=== PATIENT | female | born 1970 | race Caucasian/White ===

== ENCOUNTER 2023-08-05 08:40 | Outpatient (AMB) | payer OTHER, SELFPAY ==
--- NOTE | 2023-08-05 08:42 | MHC.OFFVIS ---
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 Previous patient of Dr. Rivera. The patient describes her knee pains as sharp and severe in nature, 07/28. Her right knee pain is worse than her left is at this point. She has had multiple injections in the past. The most recent injection gave her minimal relief. She has also done physical therapy for 12 weeks over the last 6 months which aggravated her pain. She has tried Tylenol and anti-inflammatory medicines which gave her minimal relief. The patient has difficulty walking even short distances because of her pain. At this point her right knee pain is interfering with her activities of daily living and her ability to sleep well through the night. The patient has been going to a fitness center and eating well so she has lost 65 pounds. 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 Physical Exam Vital Signs: BMI result Body Mass Index 42.3 Const Other: Well-nourished well-developed very friendly female awake alert and oriented x3 in no acute distress Extrem Other: Bilateral lower extremity examination shows good capillary refill, no skin lesions noted, normal sensation light touch Bilateral knee examination shows minimal effusions, palpable crepitus with range of motion, pain with range of motion, range of motion from -3 degrees to 115 degrees, no instability Results Reviewed Results Reviewed: X-rays of the patient's bilateral knee show severe joint space narrowing with grade 4 [id number] arthritis, subchondral sclerosis, osteophyte formation, no acute bony abnormalities Assessment & Plan Assessment & Plan (1) Arthritis of left knee: Code(s): M17.12 - Unilateral primary osteoarthritis, left knee (2) Arthritis of right knee: Code(s): M17.11 - Unilateral primary osteoarthritis, right knee Plan Ms. Weiss presents with bilateral knee pains, right greater than left, due to end-stage degenerative joint disease. I had a lengthy discussion with the patient regarding the treatment options. At this point she has failed continued non operative treatments. The risks and benefits of right total knee replacement surgery were discussed at length with the patient. The patient wishes to proceed with surgery. The patient will contact my office to pick a surgery date. I will see her back 1 week prior to the surgery to answer any final questions that she might have. She will follow-up as instructed. Feel free to call me at any time should questions regarding her orthopedic management arise. I spent 22 minutes in reviewing the patient's records and imaging studies, seeing the patient and documenting in the medical record. Coding Level of Care Code Est Pt Level 2 (12128) Diagnoses Arthritis of left knee M17.12 Arthritis of right knee M17.11
[2023-08-05 08:45] VITALS: BMI 42.3
== END 2023-08-05 09:07 | disposition home or self-care (01) ==
PROVIDERS: PCP Internal Medicine; Visit Provider Orthopaedic Surgery
DX: M17.0 Bilateral primary osteoarthritis of knee (principal)
CPT/HCPCS: 99212

== ENCOUNTER → 2023-08-05 08:40 | Outpatient (BNVA) | payer OTHER, SELFPAY | PROVIDERS: PCP Internal Medicine; Visit Provider Orthopaedic Surgery ==

== ENCOUNTER → 2023-10-07 08:33 | Outpatient (BNVA) | payer OTHER, SELFPAY | PROVIDERS: PCP Internal Medicine; Visit Provider Orthopaedic Surgery ==

== ENCOUNTER 2023-11-04 08:09 | Outpatient (AMB) | payer OTHER, SELFPAY ==
[2023-11-04 08:14] VITALS: BMI 42.3
--- NOTE | 2023-11-04 08:14 | MHC.OFFVIS ---
Intake Vital Signs 11/04/23 08:14 Height 5 ft 7 in Weight 270 lb BMI 42.3 Intake Visit Reasons: Right knee pain Intake Note: Estefany is a 52 year old female who presents with complaints of bilateral knee pains. The patient describes her knee pains as sharp and severe in nature, 10/10. Her right knee pain is worse than her left is at this point. She has had multiple injections in the past. The most recent injection gave her minimal relief. She has also done physical therapy for 12 weeks over the last 6 months which aggravated her pain. She has tried Tylenol and anti-inflammatory medicines which gave her minimal relief. The patient has difficulty walking even short distances because of her pain. At this point her right knee pain is interfering with her activities of daily living and her ability to sleep well through the night. The patient has been going to a fitness center and eating well so she has lost 65 pounds. Allergies No Known Allergies Allergy (Verified 11/04/23 08:23) [facility] Medical History Osteoarthritis Hypothyroidism Hx of pulmonary embolus during Surgical History Hx of section Social History Household Members: Family Housing: House Are you a primary home health care physician to a significant other at home: No Do you presently have visiting nurse or other home services: No Alcohol intake: current Comment: aware of trip hazard Patient Tobacco Use Status: Never used Tobacco Use of substances other than those prescribed or required for medical reasons: No Current occupational status: employed 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 Physical Exam Vital Signs: BMI result Body Mass Index 42.3 Const Other: Well-nourished well-developed very friendly female awake alert and oriented x3 in no acute distress Lungs - clear to auscultation bilaterally with symmetric expansion Cardiovascular exam - regular rate and rhythm Abdominal exam - soft nontender nondistended Extrem Other: Right knee examination shows a minimal effusion, palpable crepitus with range of motion, pain with range of motion, range of motion from -3 degrees to 115 degrees, no instability Results Reviewed Results Reviewed: X-rays of the patient's bilateral knees taken today show severe joint space narrowing with grade 4 icuj-ej-flhy arthritis, subchondral sclerosis, osteophyte formation, no acute bony abnormalities Assessment & Plan Assessment & Plan (1) Right knee pain: Code(s): M25.561 - Pain in right knee Plan Ms. Weiss presents with progressively worsening bilateral knee pains, right greater than left, due to end-stage degenerative joint disease. I had a lengthy discussion with the patient regarding her treatment options. The risks and benefits of right total knee replacement surgery were discussed at length with the patient. The patient wishes to proceed with surgery. donor services team leader will be consulted following her surgery for home physical therapy and nursing. The patient will follow-up as instructed. Feel free to call me at time should questions regarding her orthopedic management arise. I spent 22 minutes in reviewing the patient's records and imaging studies, seeing the patient and documenting in the medical record. Orders: Orders XR knee RT 3V Today M17.11 - Unilateral primary osteoarthritis, right knee XR knee LT 3V Today M17.12 - Unilateral primary osteoarthritis, left knee Coding Level of Care Code Est Pt Level 2 (42982) Diagnoses Right knee pain M25.561
== END 2023-11-04 08:53 | disposition home or self-care (01) ==
PROVIDERS: PCP Internal Medicine; Visit Provider Orthopaedic Surgery
DX: M17.11 Unilateral primary osteoarthritis, right knee (principal); M25.562 Pain in left knee
CPT/HCPCS: 99213

== ENCOUNTER 2023-11-04 10:30 | Outpatient (REF) | payer OTHER, SELFPAY ==
--- NOTE | ~2023-11-04 | XR_ITS ---
EXAMINATION: XR KNEE, RIGHT CLINICAL INFORMATION: Unilateral primary osteoarthritis. COMPARISON: None available. TECHNIQUE: AP, lateral and sunrise views of the right knee. FINDINGS: Bony mineralization is normal. There is marked asymmetric narrowing of the medial joint space compartment. The lateral joint space compartment is well-maintained. There is a secondary mild varus configuration. The patellofemoral joint space compartment shows moderate narrowing. There is tricompartment peripheral osteophyte formation. No fracture, dislocation or joint effusion is seen. There is no foreign body. XR/XR knee LT 3V IMPRESSION: 1. There is tricompartment osteoarthritic change of the right knee, most pronounced of the medial joint space compartment, where degenerative change is severe. 2. There is a mild varus configuration. 3. No right knee fracture, dislocation or joint effusion is seen. EXAMINATION: XR KNEE, LEFT CLINICAL INFORMATION: Unilateral primary osteoarthritis. COMPARISON: None available. TECHNIQUE: AP, lateral and sunrise views of the left knee. FINDINGS: Bony mineralization is normal. There is marked asymmetric narrowing of the medial joint space compartment. The lateral joint space compartment is well-maintained. There is a secondary mild varus configuration. The patellofemoral joint space is moderately narrowed. There is tricompartment peripheral osteophyte formation. No fracture, dislocation or joint effusion is seen. There is no foreign body. IMPRESSION: 1. There is tricompartment osteoarthritic change of the left knee, most pronounced of the medial joint space compartment, where degenerative change is marked. 2. There is a mild varus configuration. 3. No left knee fracture, dislocation or joint effusion is seen.
--- NOTE | ~2023-11-04 | XR_ITS ---
EXAMINATION: XR KNEE, RIGHT CLINICAL INFORMATION: Unilateral primary osteoarthritis. COMPARISON: None available. TECHNIQUE: AP, lateral and sunrise views of the right knee. FINDINGS: Bony mineralization is normal. There is marked asymmetric narrowing of the medial joint space compartment. The lateral joint space compartment is well-maintained. There is a secondary mild varus configuration. The patellofemoral joint space compartment shows moderate narrowing. There is tricompartment peripheral osteophyte formation. No fracture, dislocation or joint effusion is seen. There is no foreign body. XR/XR knee RT 3V IMPRESSION: 1. There is tricompartment osteoarthritic change of the right knee, most pronounced of the medial joint space compartment, where degenerative change is severe. 2. There is a mild varus configuration. 3. No right knee fracture, dislocation or joint effusion is seen. EXAMINATION: XR KNEE, LEFT CLINICAL INFORMATION: Unilateral primary osteoarthritis. COMPARISON: None available. TECHNIQUE: AP, lateral and sunrise views of the left knee. FINDINGS: Bony mineralization is normal. There is marked asymmetric narrowing of the medial joint space compartment. The lateral joint space compartment is well-maintained. There is a secondary mild varus configuration. The patellofemoral joint space is moderately narrowed. There is tricompartment peripheral osteophyte formation. No fracture, dislocation or joint effusion is seen. There is no foreign body. IMPRESSION: 1. There is tricompartment osteoarthritic change of the left knee, most pronounced of the medial joint space compartment, where degenerative change is marked. 2. There is a mild varus configuration. 3. No left knee fracture, dislocation or joint effusion is seen.
== END 2023-11-04 10:31 | disposition home or self-care (01) ==
LOC: HO.HOSX 10:30
PROVIDERS: Visit Provider Orthopaedic Surgery
DX: M17.0 Bilateral primary osteoarthritis of knee (principal)
CPT/HCPCS: 73562

== ENCOUNTER 2023-11-09 06:17 | Inpatient (IN) | payer OTHER, SELFPAY ==
[2023-10-30 12:01] VITALS: BP 139/87; PULSE 65; RESP 16; O2SAT 98; BMI 41.5
--- NOTE | 2023-10-30 12:18 | HO.ANESPROP2 ---
Documented by User: Brianna Nascimento NP 10/30/23 12:30 HPI - Anesthesia Eval Consult details Narrative: 53yo F for Right Knee Replacement Total Medically cleared No recent illness No CP/SOB with exercise 4 x's weekly Hypothyroid with rx Otherwise healthy [facility] Active Problems Active Problems: All Active Problems (Updated 10/30/23 @ 12:15 by Deisi Johns RN) Arthritis of right knee (Acute) Arthritis of left knee (Acute) Elevated BP without diagnosis of hypertension (Acute) Wheezing (Acute) Cough with congestion of paranasal sinus (Acute) Past Medical History Medical History Osteoarthritis Hypothyroidism Hx of pulmonary embolus during Family History Family history of problems with anesthesia: No Surgical History Surgical History Hx of section History of Problems with Anesthesia: No Social History Social History Household Members: Family Housing: House Are you a primary career technical counselor to a significant other at home: No Do you presently have visiting nurse or other home services: No Alcohol intake: current Comment: aware of trip hazard Patient Tobacco Use Status: Never used Tobacco Use of substances other than those prescribed or required for medical reasons: No Have you been hit, kicked, punched, or otherwise hurt by someone within the past year? 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 Meds Allergies Allergy/AdvReac Type Severity Reaction Status Date / Time No Known Allergies Allergy Verified 11/09/23 06:12 Home Medications Medication Instructions Recorded Confirmed Last Taken Type levothyroxine 200 mcg tablet 200 mcg PO DAILY@0600 03/04/22 11/09/23 Unknown History sertraline 50 mg tablet 75 mg PO DAILY 03/04/22 11/09/23 11/09/23 05:00 History Exam Height,Weight and Vital Signs: Height 5 ft 7 in Weight 120.202 kg Last Vital Signs Pulse 65 10/30/23 12:01 Resp 16 10/30/23 12:01 BP 139/87 10/30/23 12:01 Pulse Ox 98 10/30/23 12:01 O2 Del Method Room Air 10/30/23 12:01 Pertinent Lab Results Pertinent Lab Results: 10/23/23 CBC and BMP WNL Narrative Narrative: EKG 10/23/23 SR @ 63 Borderline LAD Low voltage in precordial leads Consider anterior infarct (PCP interprets - NSR, lead placement issues. No acute changes Airway Mallampati Class: II TM Dist: >3cm Neck ROM: Full Loose/Missing/Broken Teeth: No Heart: RRR Lungs: CTAB Assessment and Plan Assessment Anesthesia Assessment: Anesthesia Plan Discussed and PAT Visit Final Anesthetic Review Family History of Problems with Anesthesia: No History of Problems with Anesthesia: No Documented by User: Rayna Kendrick MD 11/09/23 08:50 PMFSH Past Medical History Medical History Osteoarthritis Hypothyroidism Hx of pulmonary embolus during Surgical History Surgical History Hx of section Social History Social History Household Members: Family Housing: House Are you a primary career technical counselor to a significant other at home: No Do you presently have visiting nurse or other home services: No Alcohol intake: current Comment: aware of trip hazard Patient Tobacco Use Status: Never used Tobacco Use of substances other than those prescribed or required for medical reasons: No Have you been hit, kicked, punched, or otherwise hurt by someone within the past year? 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 Meds Allergies Allergy/AdvReac Type Severity Reaction Status Date / Time No Known Allergies Allergy Verified 11/09/23 06:12 Home Medications Medication Instructions Recorded Confirmed Last Taken Type levothyroxine 200 mcg tablet 200 mcg PO DAILY@0600 03/04/22 11/09/23 Unknown History sertraline 50 mg tablet 75 mg PO DAILY 03/04/22 11/09/23 11/09/23 05:00 History Assessment and Plan Assessment Anesthesia Assessment: Chart Reviewed Final Anesthetic Review NPO: Yes ASA Class: III Final Preanesthetic Review: No Changes in Pt Med Stat, Meds/Allgs Chart Reviewed, Consent Obtained/Reviewed and Anes Risks/Benef Reviewed Patient Risk: Intermediate Procedure Risk: Intermediate Anesthetic Plan Anesthetic Plan: GA, MAC:, Spinal and Regional Block Disposition: Standard PACU
[2023-10-30 14:08] LABS: MRSA Nasal PCR NEGATIVE (Negative); SA Nasal PCR NEGATIVE (Negative)
[2023-11-09] VITALS (11 sets, daily range): BP systolic 93–135; BP diastolic 59–81; PULSE 51–70; RESP 16–18; TEMP 36.1–37.1; O2SAT 95–100; BMI 43.0; BMI 43.7
--- NOTE | 2023-11-09 06:45 | PHA.MEDREC ---
Pharmacy Consult ? Medication Reconciliation Pharmacy has completed the medication reconciliation. Reviewed med rec done by nursing
[2023-11-09] MEDS: Lactated Ringers 1,000 ML 100 ML IVCONT ×3 (07:08→22:29)
--- NOTE | 2023-11-09 10:49 | P.BOP_ITS ---
Brief Operative Note Date of Service: 11/09/23 Pre-op diagnosis: Right knee degenerative joint disease Post-op diagnosis: same Procedure: Right total knee arthroplasty Implants: [place] [employer] cemented posterior stabilized total knee arthroplasty with a femoral component size 5 right, tibial component size 5, polyethylene liner size 5 with a 11 mm of thickness, an asymmetric patellar component size 29 with 9 mm of thickness Surgeon: Shree Barker MD Anesthesia: GLMA, regional and spinal Was an Plant Pathology Teacher used for this Procedure?: No Estimated blood loss (mL): 200 Pathology: other (Bony fragments from the right femur, tibia and patella) Condition: stable Disposition: PACU
--- NOTE | 2023-11-09 10:50 | P.OP_ITS ---
Operative Note Operative Note Date of Service: 11/09/23 Narrative: After the patient was identified as Estefany Weiss and her right knee was initialed by myself the patient was brought to the holding area where a right leg nerve block was performed by the anesthesiologist in routine fashion. The patient was then brought to the operating room where conscious sedation and spinal anesthesia were performed by the anesthesiologist in routine fashion. At this point the patient was somewhat anxious. Thus, the decision was made to convert to general anesthesia via LMA. General anesthesia was induced by the anesthesiologist in routine fashion. Because of the patient's obesity she was given both IV Ancef and IV vancomycin preoperatively for infection prophylaxis. The patient's right lower extremity was prepped and draped in sterile fashion. A formal time-out was completed. The patient's right knee was placed onto a small bump to produce 30? of knee flexion during exposure. A #10 scalpel blade was used to make a midline incision extending 1 handbreadth proximal and distal to the patella. A second #10 scalpel blade was used to dissect the subcutaneous tissues down to the extensor mechanism. The subcutaneous flaps were maintained as thick as possible. A medial parapatellar arthrotomy was then performed using a #10 scalpel blade. The arthrotomy was begun just medial to the patellar tendon. The arthrotomy was continued 1 cm medial to the patella and then 5 mm into the medial aspect of the quadriceps tendon. The infrapatellar fat pad was partially excised to help with exposure. The soft tissue retinaculum was raised one-half of the way around the medial aspect of the proximal tibia. The patella was everted and the knee was flexed to 90?. There was no injury to the patellar tendon or its insertion onto the tibial tubercle. A drill bit was introduced into the distal aspect of the femur with a starting point 1 cm anterior to the origin of the posterior cruciate ligament. The intramedullary alignment jefry was put into place. The distal alignment guide was set for a 5 degree valgus cut. The distal cutting block was put into place and was held with 4 pins. The intramedullary alignment jefry was removed. Soft tissues were retracted in the distal femoral cut was made using a sagittal saw. The distal aspect of the femur measured to be a size 5 right component. Two drill holes were placed into the distal aspect of the femur marking 3? of external rotation. The distal cutting block was impacted into place and was held with 2 pins. Soft tissues were retracted and the 4 distal femoral cuts were made using a sagittal saw. Final notching and drilling of the distal aspect of the femur were performed in routine fashion. The trial femoral component was impacted into place. The knee was taken through a full range of motion. The patella tracked well. The patella was everted and the knee was flexed to 90?. The trial component was removed and our attention was directed to the proximal tibia. The medial and lateral menisci were removed using a #10 scalpel blade. A small rim of the medial meniscus was left intact to help prevent injury to the medial collateral ligament. A drill bit was then introduced into the proximal tibia with a st arting point midway from medial to lateral and one-third of the way posteriorly. The intramedullary alignment jefry was put into place. The proximal tibial cutting guide was placed over the alignment jefry in line with the 2nd toe. The guide was held in place using 3 pins. The intramedullary alignment jefry was removed. Soft tissues were retracted and the proximal tibial cut was made using a sagittal saw. The proximal tibia measured to be a size 5 component. The tibial tray was put into place with an 11 mm liner. The femoral component was impacted into place. The knee was taken through a full range of motion. There was full flexion and full extension. There was no instability with varus or valgus stress testing with the knee in flexion or extension. The patella tracked well with no medially directed force. The rotation of the tibial tray was marked using electrocautery with the knee in extension. The patella was everted and the knee was flexed to 90?. All trial components were removed. The tibial tray was placed onto the proximal tibia in line with the electrocautery brayden. The tray was held in place using 3 pins. Final broaching of the proximal tibia was performed in routine fashion. The trial liner and trial femoral component were put into place. The knee was brought into extension and our attention was directed to the patella. The patella measured 25 mm in thickness. The patellar resection guide was set for a 10 mm resection. Soft tissues were retracted and the patella cut was made using a sagittal saw. The remaining patella measured 15 mm in thickness. The undersurface of the patella was measured to be a size 29 asymmetric component. Three drill holes were placed into the undersurface of the patella in routine fashion. The trial component was put into place. The knee was taken through a full range of motion. The patella tracked well. The patella was everted and the knee was flexed to 90?. All trial components were removed. The knee was once again brought into extension and placed onto a small bump. The knee joint was irrigated with copious amounts of normal saline solution via pulse lavage while the cement was mixed. The patella was everted and the knee was flexed to 90?. A small amount of cement was placed along the posterior aspects of the tibial and femoral components. Cement was then pressurized into the proximal tibia. The tibial component was impacted into place. Any excess cement was removed. The polyethylene liner was then impacted into place. Cement was then pressurized into the distal aspect of the femur. A small amount of cement was placed into the intramedullary canal to help reduce bleeding. The femoral component was impacted into place. Any excess cement was removed. The knee was then brought into extension. Cement was pressurized into the undersurface of the patella. The patellar component was put into place and was held with a patella clamp. Any excess cement was removed. Once the cement had hardened the patellar clamp was removed. The knee was taken through a full range of motion. There was full flexion and extension. There was no instability with varus or valgus stress testing with the knee in flexion or extension. The patella tracked well with no medially directed force. The knee joint was irrigated with copious amounts of normal saline solution via pulse lavage. Any significant bleeding vessels were coagulated. The patient's right knee was placed onto a small bump. The arthrotomy was closed with #2 Ethibond [id number] interrupted suture as well as #1 Vicryl [id number] interrupted suture. The wound was once again irrigated. The subcutaneous tissues were closed with 0 Vicryl and 2-0 Vicryl interrupted sutures. The skin was closed with skin carlitos. Dry sterile dressing and Max bandages were placed over the patient's right knee. The patient was awoken and extubated in the operating room. The patient was transferred to the recovery room in stable condition.
[2023-11-09] MEDS: oxyCODONE HCl ER 10 MG TAB.ER.12H PO ×2 (12:36→20:21)
[2023-11-09] MEDS: methocarbamoL 750 MG TABLET PO ×2 (12:36→20:21)
[2023-11-09] MEDS: Docusate Sodium 100 MG CAPSULE PO ×2 (12:36→20:21)
[2023-11-09] MEDS: Celecoxib 200 MG CAPSULE PO ×2 (12:36→20:21)
[2023-11-09] MEDS: 0.9 % Sodium Chloride Flush 3 ML SYRINGE IVFLUSH (12:48)
[2023-11-09 13:06] LABS: Creatinine Clr Calc Pharmacy 113.7; Estimated Glomerular Filt Rate > 60
--- NOTE | 2023-11-09 13:45 | P.CONHOSP_ITS ---
History of Present Illness Data of Consult Service Date: 11/09/23 Requesting physician: Shree Barker Primary Care Provider: Alexa Thompson MD [facility] Reason for consult: medical management 53 year old female with history of hypothyroidism and mood disorder admitted to orthopedic surgery for osteoarthritis of the right knee s/p TKA with consult placed to hospitalist service for medical management. She is resting comfortably in bed with her and son at bedside. She reports pain is well-controlled. Has no other complaints at this time. She reports occasional alcohol use has never smoked cigarettes. No illicit drug use. Review of Systems 2 Review of Systems: General: No fevers, malaise, unintentional weight loss Cardiovascular: No chest pain, palpitations, or leg edema Respiratory: No shortness of breath, wheezing, cough GI: No abdominal pain, nausea, vomiting, diarrhea : No dysuria, hematuria, increased urinary frequency Neuro: No headaches, weakness, paresthesias Skin: No rashes or lesions PMFSH Medical History Mood disorder Osteoarthritis Hypothyroidism Hx of pulmonary embolus during Surgical History Hx of section Social History Household Members: Spouse and Children Housing: House Are you a primary children's zoo caretaker to a significant other at home: No Do you presently have visiting nurse or other home services: No Alcohol intake: current Patient Tobacco Use Status: Never used Tobacco Smoked in Last 30 Days: No Patient Interested in Nicotine Replacement: No Patient Given Instructions on How to Stop Smoking: No Second Hand Smoke Exposure: No Use of substances other than those prescribed or required for medical reasons: No Have you been hit, kicked, punched, or otherwise hurt by someone within the past year? If so, by whom?: No Do you feel safe in your current relationship?: Yes Is there a partner from a previous relationship who is making you feel unsafe now?: No Are you made to feel afraid or neglected: No Are you DNR?: No Advance Directives: No Advance Directives Information Provided: Yes Advance Directives on File: No Do you have thoughts of harming others: None Do you have a plan to hurt others: No Plan Recently lost weight without trying: No How much weight loss: Not applicable Eating poorly because of decreased appetite: No Nutrition screen score: 0 Nutrition Risks: No Nutritional Risk Patient : No FDLMP: 10/18/2023 : No Poor oral hygiene: No Current occupational status: employed 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 Meds Allergies Allergy/AdvReac Type Severity Reaction Status Date / Time No Known Allergies Allergy Verified 11/09/23 06:12 Active Medications: Current Medications Acetaminophen (Acetaminophen 325 Mg Tablet) 650 mg PO Q6H PRN PRN Reason: Pain, Mild (Pain Scale 1-3) Celecoxib (Celecoxib 200 Mg Capsule) 200 mg PO BID [facility] Last Admin: 11/09/23 12:36 Dose: 200 mg Docusate Sodium (Docusate Sodium 100 Mg Capsule) 100 mg PO BID [facility] Last Admin: 11/09/23 12:36 Dose: 100 mg Enoxaparin Sodium (Enoxaparin Sodium 40 Mg/0.4 Ml Syringe) 40 mg SUBCUT Q24H [facility] Gabapentin (Gabapentin 100 Mg Capsule) 100 mg PO BEDTIME [facility] Hydromorphone HCl (Hydromorphone Hcl 0.5 Mg/0.5 Ml Syringe) 0.25 mg IVPUSH Q4H PRN; Protocol PRN Reason: Pain, Severe (Pain Scale 7-10) Hydromorphone HCl (Hydromorphone Hcl 0.5 Mg/0.5 Ml Syringe) 0.5 mg IVPUSH Q4H PRN; Protocol PRN Reason: Pain, Severe (Pain Scale 7-10) Lactated Ringer's (Lr) 1,000 mls @ 100 mls/hr IVCONT .Q10H [facility] Last Admin: 11/09/23 12:35 Dose: 100 mls/hr Vancomycin HCl (Vancomycin/Ns) 2,000 mg in 520 mls @ 250 mls/hr IV POSTOP ONE Stop: 11/09/23 21:04 Cefazolin Sodium/Dextrose (Ancef) 2 gm in 50 mls @ 100 mls/hr IV Q8H [facility] Levothyroxine Sodium (Levothyroxine Sodium 200 Mcg Tablet) 200 mcg PO DAILY@0600 [facility] Methocarbamol (Methocarbamol 750 Mg Tablet) 750 mg PO TID [facility] Last Admin: 11/09/23 13:01 Dose: Not Given Ondansetron HCl (Ondansetron Hcl 4 Mg/2 Ml Vial) 4 mg IVPUSH ONCE PRN PRN Reason: Nausea and Vomiting Ondansetron HCl (Ondansetron Hcl 4 Mg/2 Ml Vial) 4 mg IVPUSH Q8H PRN PRN Reason: Nausea and Vomiting Oxycodone HCl (Oxycodone Hcl Immed Release 5 Mg Tablet) 5 mg PO ONCE PRN PRN Reason: Pain, Severe (Pain Scale 7-10) Oxycodone HCl (Oxycodone Hcl Immed Release 5 Mg Tablet) 5 mg PO Q4H PRN PRN Reason: Pain, Moderate(Pain Scale 4-6) Oxycodone HCl (Oxycodone Hcl Er 10 Mg Tab.Er.12h) 10 mg PO BID [facility] Last Admin: 11/09/23 12:36 Dose: 10 mg Oxycodone HCl (Oxycodone Hcl Immed Release 5 Mg Tablet) 10 mg PO Q4H PRN PRN Reason: Pain, Moderate(Pain Scale 4-6) Pharmacy Consult (Consult Rx Vancomycin Dosing) 1 each MISCELLANE DAILY PRN PRN Reason: Consult order Sertraline HCl (Sertraline Hcl 25 Mg Tablet) 75 mg PO DAILY [facility] Last Admin: 11/09/23 12:37 Dose: Not Given Sodium Chloride (0.9 % Sodium Chloride Flush 3 Ml Syringe) 3 ml IVFLUSH QSHIFT [facility] Last Admin: 11/09/23 12:48 Dose: 3 ml Home Medications Medication Instructions Recorded Confirmed Last Taken Type levothyroxine 200 mcg tablet 200 mcg PO DAILY@0600 03/04/22 11/09/23 Unknown History sertraline 50 mg tablet 75 mg PO DAILY 03/04/22 11/09/23 11/09/23 05:00 History Physical Exam 2 Vital Signs and Narrative: Vital Signs: Last Vital Signs Temp 97 F 11/09/23 11:59 Pulse 58 11/09/23 11:59 Resp 16 11/09/23 11:59 BP 128/67 11/09/23 11:59 Pulse Ox 100 11/09/23 11:59 O2 Del Method Room Air 11/09/23 11:59 O2 Flow Rate 2 11/09/23 11:41 BMI result Body Mass Index 43.7 Constitutional - Awake and Alert, No apparent distress Eyes - PERRLA, EOMI Cardiovascular - S1S2, RRR, No edema Respiratory - Normal lung expansion, Normal respiratory effort, No respiratory distress, CTA bilaterally Gastrointestinal - NT / ND; +BS; No rebound or guarding Extremities - no calf tenderness bilaterally, no swelling. post-operative bandage in place Skin - Warm/Dry Neurological - Alert & oriented x3, sensation in tact Psychological - Appropriate affect Results Labs 11/09/23 12:42 Labs: Laboratory Results - last 24 hr 11/09/23 12:42 Estim Creat Clear Calc 113.7 Estimated GFR > 60 Assessment and Plan (1) Arthritis of right knee: Status: Acute Plan 53 year old female with history of hypothyroidism and mood disorder admitted to orthopedic surgery for osteoarthritis of the right knee s/p TKA with consult placed to hospitalist service for medical management. #OA R Knee s/p TKA POD0 -plan per orthopedic surgery #Hypothyroidism -continue synthroid #Mood disorder -continue sertraline Thank you for allowing me to participate in this consult. Chart reviewed, VSS. Signing off at this time. Please do not hesitate to call for further questions.
[2023-11-09] MEDS: oxyCODONE HCl Immed Release 5 MG TABLET 10 MG PO ×2 (15:32→20:22)
[2023-11-09] MEDS: Acetaminophen 325 MG TABLET 650 MG PO (17:03)
[2023-11-09] MEDS: Enoxaparin Sodium 40 MG/0.4 ML SYRINGE SUBCUT (19:09)
[2023-11-09] MEDS: Gabapentin 100 MG CAPSULE PO (20:21)
[2023-11-10] VITALS (13 sets, daily range): BP systolic 102–148; BP diastolic 57–70; PULSE 62–96; RESP 16–18; TEMP 36.5–36.8; O2SAT 95–100
[2023-11-10] MEDS: oxyCODONE HCl Immed Release 5 MG TABLET 10 MG PO ×4 (00:36→20:14)
[2023-11-10] MEDS: ceFAZolin Sodium/Dextrose,Iso 2 GM/50 ML PIGGYBACK IV ×2 (00:38→07:49)
[2023-11-10] MEDS: Levothyroxine Sodium 200 MCG TABLET PO (05:40)
[2023-11-10 06:58] LABS: MANUAL DIFF FLAG NO
[2023-11-10 07:04] LABS: Basophils Percent Auto 0.3 % (0-2); Eosinophils Percent Auto 0.1 % (0-4); Hematocrit 34.2 % (37.0-47.0); Hemoglobin 11.2 g/dl (12.0-16.0); Imm Gran Abs Auto 0.04 X10*3/uL (0.00-0.03); Imm Gran Pct Auto 0.3 % (0.0-0.4); Lymphocytes Absolute Auto 2.3 X10*3/uL (1.2-4.9); Lymphocytes Percent Auto 19.5 % (20-40); Mean Corpuscular HGB Conc 32.7 g/dl (31.0-35.0); Mean Corpuscular Hemoglobin 30.6 pg (27.0-33.0); Mean Corpuscular Volume 93.4 fL (80.0-98.0); Monocytes Percent Auto 8.4 % (2-11); Neutrophils Absolute Auto 8.3 x10*3/uL (2.0-8.3); Neutrophils Percent Auto 71.4 % (45-73); Platelet Count 196 X10*3/uL (160-400); Red Blood Count 3.66 X10*6/uL (4.20-5.50); Red Cell Distribution Width 12.4 % (11.0-16.0); White Blood Count 11.6 X10*3/uL (4.8-10.8)
[2023-11-10 07:20] LABS: Anion Gap 11 (12-20); Blood Urea Nitrogen 12 mg/dL (9-16); Calcium 8.6 mg/dL (8.4-10.2); Carbon Dioxide 29 mmol/L (22-29); Chloride 107 mmol/L (96-108); Creatinine Clr Calc Pharmacy 130.1; Estimated Glomerular Filt Rate > 60; Glucose Fasting 98 mg/dL (60-99); Potassium 4.6 mmol/L (3.3-5.1); Sodium 142 mmol/L (135-145)
[2023-11-10] MEDS: Sertraline HCL 25 MG TABLET 75 MG PO (07:48)
[2023-11-10] MEDS: Celecoxib 200 MG CAPSULE PO ×2 (07:48→20:17)
[2023-11-10] MEDS: methocarbamoL 750 MG TABLET PO ×3 (07:48→20:15)
[2023-11-10] MEDS: Docusate Sodium 100 MG CAPSULE PO ×2 (07:48→20:17)
[2023-11-10] MEDS: oxyCODONE HCl ER 10 MG TAB.ER.12H PO ×2 (07:48→20:16)
[2023-11-10] MEDS: oxyCODONE HCl Immed Release 5 MG TABLET PO (08:03)
[2023-11-10] MEDS: 0.9 % Sodium Chloride 1,000 ML 999 ML IV (11:57)
--- NOTE | 2023-11-10 12:01 | MHC.CM.PN ---
CM MET WITH PT AT BEDSIDE. PT LIVES WITH SPOUSE AND CHILD. INDEPENDENT AND EMPLOYED F/T. NO HCP BUT WILLING TO COMPLETE ONE. PCP DR. WEISS DP: HOME WITH [facility] FOR P.T. PT IS COMFORTABLE WITH GIVING OWN LOVENOX INJECTIONS SHE HAS DONE IN PAST. PT HAS OWN RIDE HOME.
--- NOTE | 2023-11-10 12:33 | PM.DS ---
DS: Providers Provider Date of Service: 11/11/23 <Marilyn Bethea PA-C - Last Filed: 11/11/23 17:08> Date of admission: 11/09/23 06:17 <Sophie King PA-C - Last Filed: 11/10/23 12:34> Primary care physician: Alexa Thompson MD <Sophie King PA-C - Last Filed: 11/10/23 12:34> Consults: 11/09/23 11:59 Consult to Hospitalist Routine Comment: Consulting Provider: Hospitalist Reason For Exam: Routine medical management <PAUL Ramírez Last Filed: 11/10/23 12:34> DS: Diagnosis Discharge Diagnosis (1) Arthritis of right knee: Status: Acute <PAUL Ramírez Last Filed: 11/10/23 12:34> DS: Summary Hospital Course Hospital Course: The patient underwent a successful right total knee arthroplasty, they were transferred to PACU and then to the floor to recover. During their stay, their vitals were stable, afebrile at 97.5 . Labs were unremarkable, H/H 10.5/32.0. POD 1 they were started on Aspirin 325mg po bid for DVT ppx, they also received Physical Therapy services twice a day. Prior to discharge, their dressing was clean dry and intact and the plan was to be discharged home with VNA services. <Sophie King PA-C - Last Filed: 11/10/23 12:34> Time Attestation Discharge coordination time: Less than 30 minutes <Sophie King PA-C - Last Filed: 11/10/23 12:34> Quality: Safe Use of Opioids Does Pt have an Active Cancer Diagnosis on the Problem List?: No <Sophie King PA-C - Last Filed: 11/10/23 12:34> Quality: Stroke Does the patient have a stroke diagnosis?: No <Sophie King PA-C - Last Filed: 11/10/23 12:34> Physical Exam Vital Signs: Vital Signs: Last Vital Signs Temp 97.9 F 11/10/23 11:16 Pulse 64 11/10/23 11:16 Resp 18 11/10/23 11:16 BP 122/60 11/10/23 11:16 Pulse Ox 96 11/10/23 11:16 O2 Del Method Room Air 11/10/23 11:16 O2 Flow Rate 2 11/09/23 11:41 BMI result Body Mass Index 43.7 <Sophie King PA-C - Last Filed: 11/10/23 12:34> Extrem: Other: right knee dressing is c/d/i. Able to dorsi/plantar flex. Calf is supple and nontender. Sensation intact. Pedal pulse intact. <Sophie King PA-C - Last Filed: 11/10/23 12:34> DS: Data Data Completed and Pending Pending studies at discharge: Pending at discharge 11/09/23 08:42 Surgical [PTH] Routine <Sophie King PA-C - Last Filed: 11/10/23 12:34> Labs on day of discharge: Laboratory Results - last 24 hr 11/09/23 11/10/23 12:42 06:50 WBC 11.6 H RBC 3.66 L Hgb 11.2 L Hct 34.2 L MCV 93.4 MCH 30.6 MCHC 32.7 RDW 12.4 Plt Count 196 MPV 9.0 L Immature Gran % (Auto) 0.3 Neut % (Auto) 71.4 Lymph % (Auto) 19.5 L Craig % (Auto) 8.4 Eos % (Auto) 0.1 Baso % (Auto) 0.3 Lymph # (Auto) 2.3 Craig # (Auto) 1.0 Eos # (Auto) 0.0 Baso # (Auto) 0.0 Abs Immat Gran (auto) 0.04 H Absolute Neuts (auto) 8.3 Absolute Nucleated RBC 0.000 Nucleated RBC % (auto) 0.0 Sodium 142 Potassium 4.6 Chloride 107 Carbon Dioxide 29 Anion Gap 11 L BUN 12 Creatinine 0.80 0.70 Estim Creat Clear Calc 113.7 130.1 Estimated GFR > 60 > 60 Fasting Glucose 98 Calcium 8.6 <Sophie King PA-C - Last Filed: 11/10/23 12:34> Discharge Plan Discharge Anticipated Discharge Date/Time: 11/11/23 15:00 <Sophie King PA-C - Last Filed: 11/10/23 12:34> Patient Disposition: Home Health Service <Sophie King PA-C - Last Filed: 11/10/23 12:34> Discharge Diagnosis: s/p RTKA <Sophie King PA-C - Last Filed: 11/10/23 12:34> s/p RTKA <Marilyn Bethea PA-C - Last Filed: 11/11/23 17:08> Referrals: Sophie King PA-C [Physician Motion Picture Scene Builder] - 11/26/23 1:15 pm <Sophie King PA-C - Last Filed: 11/10/23 12:34> Discharge Medications: New acetaminophen 325 mg Tablet 650 mg PO Q6H PRN (Reason: Pain, Mild (Pain Scale 1-3)) 30 Days Qty: 240 0RF methocarbamol 750 mg Tablet 750 mg PO TID 7 Days Qty: 21 0RF enoxaparin 40 mg/0.4 mL Syringe 40 mg subcut Q24H 42 Days Qty: 16.8 0RF celecoxib 200 mg Capsule 200 mg PO BID 30 Days Qty: 60 0RF docusate sodium 100 mg Capsule 100 mg PO BID 90 Days Qty: 180 0RF gabapentin 100 mg Capsule 100 mg PO BEDTIME 7 Days Qty: 7 0RF oxycodone 5 mg Tablet 5 mg PO Q4H PRN (Reason: Pain, Moderate(Pain Scale 4-6)) 7 Days Qty: 42 0RF Rx Instructions: Partial Fill upon patient request. Continued (DME) sandra Chongc See Rx Instructions .ROUTE .MEDSUPPLY Qty: 1 0RF Rx Instructions: Folding front wheeled walker levothyroxine 200 mcg tablet 200 mcg PO DAILY@0600 sertraline 50 mg tablet 75 mg PO DAILY <Sophie King PA-C - Last Filed: 11/10/23 12:34> Discharge Orders: Discharge Order (Routine); Ordered 11/11/23 Ordered By: Marilyn Bethea <Sophie King PA-C - Last Filed: 11/10/23 12:34> Diet: Advance to usual diet <PAUL Ramírez Last Filed: 11/10/23 12:34> Advance to usual diet <PAUL Benjamin Last Filed: 11/11/23 17:08> Activity on Discharge: Use cane or walker <Sophie King PA-C - Last Filed: 11/10/23 12:34> Use cane or walker <PAUL Benjamin Last Filed: 11/11/23 17:08> Stand Alone Forms: Patient Portal Discharge page <PAUL Ramírez Last Filed: 11/10/23 12:34> Care Plan Goals: Restore fxn to right knee <PAUL Ramírez Last Filed: 11/10/23 12:34> Health Concerns: None <PAUL Ramírez Last Filed: 11/10/23 12:34> Plan of Treatment: Physical Therapy for ROM 0-120, quad strength, gait training. Use walker for ambulation Limit stair climbing, No shower, No tub bath, No driving Continue anticoagulant x 6 weeks Keep Aquacel dressing clean, dry and intact. Follow up with orthopedics in 2 weeks <PAUL Ramírez Last Filed: 11/10/23 12:34> Assessment: stable for d/c <PAUL Ramírez Last Filed: 11/10/23 12:34>
--- NOTE | 2023-11-10 12:34 | P.F2F_ITS ---
Service Date Service Date: 11/10/23 Encounter Date of encounter: 11/11/23 Reasons for Services Signs and symptoms assessed: s/p RTKA. Pt. is considered homebound due to recent surgery. Unable to drive, poor balance, poor gait mechanics. Reason for physical therapy: home safety and mobility, therapeutic exercises, restore joint function, gait/transfer training, assess need for DME and ADL training Reason for occupational therapy: home safety and mobility, therapeutic exercises, restore joint function, assess need for DME and ADL training Homebound: Leaving the home is medically contraindicated at this time without the asist of a device and/or another person due th the listed conditions above and below. Reason homebound: unsteady gait / fall risk, leg weakness, pain with ambulation, pain with transfers, poor balance / fall risk and unable to drive Certification: Based on the above findings, I certify that this patient is confined to the home and needs intermittent group home care, physical therapy and/or speech therapy, or continues to need occupational therapy. The patient is under my care, and I have initiated the establishment of the plan of care. The patient will be followed by a physician who will periodically review the plan of care. Time Spent With Patient Time: Total time managing care of this patient today ____ minutes.
--- NOTE | 2023-11-10 13:12 | P.PNOP_ITS ---
Subjective Subjective Date of Service: 11/10/23 Interval history: POD 1 s/p Rt TKA 11/09/23 No overnight events resting in bed difficulty with pain mgmnt deneis cp,sob,palpitations Physical Exam Vital Signs: Vital Signs: Last Vital Signs Temp 97.9 F 11/10/23 11:16 Pulse 64 11/10/23 11:16 Resp 18 11/10/23 11:16 BP 122/60 11/10/23 11:16 Pulse Ox 96 11/10/23 11:16 O2 Del Method Room Air 11/10/23 11:16 O2 Flow Rate 2 11/09/23 11:41 BMI result Body Mass Index 43.7 Const: General: cooperative, healthy appearing and no acute distress Resp: Effort & Inspection: normal respiratory effort and able to speak in complete sentences Cardio: Rate: regular rate Peripheral pulses: Peripheral pulses 2+ throughout GI: Palpation (GI): Soft to palpation Skin: General skin exam: no rashes or lesions noted Extrem: Other: bandage clean dry and intact. Efrain intact. No erythema or joint effusion. Calf supple nontender. Neurovascularly intact. Procedures Date of Service Date of Service: 11/10/23 Progress Note: A&P Assessment and plan (1) Status post total right knee replacement: Status: Acute Assessment and Plan: * Continue pain mgmnt * Begin lovenox dvt ppx * begin PT for RT TKA * Dispo planning-Pending PT eval, pain mgmnt Need for continued inpatient stay: PT/Pain control Time Spent With Patient Time: Total time managing care of this patient today ____ minutes. Quality Stroke Does the patient have a stroke diagnosis?: No VTE Prior VTE?: No VTE Risk Level:: Surgical - very high VTE Device Contraindication: N/A - Device Ordered VTE Drug Contraindication: N/A - Med Ordered
--- NOTE | 2023-11-10 14:00 | PC.NURSE ---
Pt with dizzy episode when getting oob with PT. B/P 106/61 lying, 112/46 sitting. Upon standing felt faint and patient was returned to sitting on bed. Pt wasn't responding to staff for several seconds. Layed pt back down and began responding again. Ortho and hospitalists notified. 1LNS bolus ordered and given. Orthostatics 1 hr post bolus WNL. Ijeoma MOLINA notified.
--- NOTE | 2023-11-10 14:34 | HO.POSTANES ---
Post Anesthesia Evaluation Post Anesthesia Evaluation Date of Service: 11/10/23 Vital Signs: Vital Signs Temp Pulse Resp BP Pulse Ox O2 Del Method 11/10/23 14:08 64 125/61 100 11/10/23 13:29 98.1 F 64 18 125/61 100 Room Air 11/10/23 13:27 98.1 F 65 18 129/68 100 Room Air 11/10/23 13:01 98.1 F 71 16 125/58 L 97 Room Air 11/10/23 11:16 97.9 F 64 18 122/60 96 Room Air 11/10/23 10:50 106/61 11/10/23 08:11 64 122/60 96 11/10/23 06:54 98 F 65 16 102/58 L 100 Room Air 11/10/23 03:52 97.7 F 62 16 114/57 L 98 Room Air Anesthesia: Spinal and Nerve Block Mental Status: Awake Pain Control: Satisfactory (difficulty controlling pain) Nausea/Vomiting: None Hydration: Adequate Anesthesia-Related Issues: No Anes. Related Issues
[2023-11-10] MEDS: 0.9 % Sodium Chloride Flush 3 ML SYRINGE IVFLUSH (16:07)
[2023-11-10] MEDS: Acetaminophen 325 MG TABLET 650 MG PO (17:32)
[2023-11-10] MEDS: Gabapentin 100 MG CAPSULE PO (20:15)
[2023-11-10] MEDS: Enoxaparin Sodium 40 MG/0.4 ML SYRINGE SUBCUT (20:16)
[2023-11-10] MEDS: HYDROmorphone HCl 0.5 MG/0.5 ML SYRINGE 0.25 MG IVPUSH (21:54)
[2023-11-11] VITALS (7 sets, daily range): BP systolic 111–127; BP diastolic 56–64; PULSE 77–80; RESP 16–18; TEMP 36.3–36.8; O2SAT 96–98
[2023-11-11] MEDS: 0.9 % Sodium Chloride Flush 3 ML SYRINGE IVFLUSH ×3 (00:26→16:03)
[2023-11-11] MEDS: oxyCODONE HCl Immed Release 5 MG TABLET 10 MG PO ×4 (04:45→17:33)
[2023-11-11 06:08] LABS: MANUAL DIFF FLAG NO
[2023-11-11] MEDS: Levothyroxine Sodium 200 MCG TABLET PO (06:09)
[2023-11-11 06:29] LABS: Anion Gap 10 (12-20); Blood Urea Nitrogen 12 mg/dL (9-16); Calcium 8.3 mg/dL (8.4-10.2); Carbon Dioxide 29 mmol/L (22-29); Chloride 106 mmol/L (96-108); Creatinine Clr Calc Pharmacy 121.4; Estimated Glomerular Filt Rate > 60; Glucose Fasting 101 mg/dL (60-99); Potassium 4.5 mmol/L (3.3-5.1); Sodium 140 mmol/L (135-145)
[2023-11-11 06:41] LABS: Basophils Percent Auto 0.3 % (0-2); Eosinophils Absolute Auto 0.2 X10*3/uL (0.0-0.4); Eosinophils Percent Auto 1.9 % (0-4); Hemoglobin 10.5 g/dl (12.0-16.0); Imm Gran Abs Auto 0.03 X10*3/uL (0.00-0.03); Imm Gran Pct Auto 0.3 % (0.0-0.4); Lymphocytes Absolute Auto 1.9 X10*3/uL (1.2-4.9); Mean Corpuscular HGB Conc 32.8 g/dl (31.0-35.0); Mean Corpuscular Hemoglobin 30.2 pg (27.0-33.0); Mean Platelet Volume 9.4 fL (9.4-12.3); Monocytes Absolute Auto 0.9 X10*3/uL (0.1-1.2); Monocytes Percent Auto 9.7 % (2-11); Neutrophils Absolute Auto 6.3 x10*3/uL (2.0-8.3); Neutrophils Percent Auto 67.8 % (45-73); Platelet Count 181 X10*3/uL (160-400); Red Blood Count 3.48 X10*6/uL (4.20-5.50); Red Cell Distribution Width 12.7 % (11.0-16.0); White Blood Count 9.3 X10*3/uL (4.8-10.8)
[2023-11-11] MEDS: oxyCODONE HCl ER 10 MG TAB.ER.12H PO (07:28)
[2023-11-11] MEDS: methocarbamoL 750 MG TABLET PO ×2 (07:28→14:35)
[2023-11-11] MEDS: Sertraline HCL 25 MG TABLET 75 MG PO (07:28)
[2023-11-11] MEDS: Docusate Sodium 100 MG CAPSULE PO (07:29)
[2023-11-11] MEDS: Celecoxib 200 MG CAPSULE PO (07:29)
[2023-11-11] MEDS: Acetaminophen 325 MG TABLET 650 MG PO (08:57)
--- NOTE | 2023-11-11 10:13 | P.PNOP_ITS ---
Subjective Subjective Date of Service: 11/11/23 Interval history: POD 2 s/p Rt TKA 11/09/23 No overnight events resting in bed Pain is managed deneis cp, sob, palpitations - Dizziness with standing improved from yesterday Physical Exam Vital Signs: Vital Signs: Last Vital Signs Temp 98 F 11/11/23 06:47 Pulse 77 11/11/23 08:58 Resp 16 11/11/23 06:47 BP 111/64 11/11/23 08:58 Pulse Ox 96 11/11/23 08:58 O2 Del Method Room Air 11/11/23 06:47 O2 Flow Rate 2 11/09/23 11:41 BMI result Body Mass Index 43.7 Const: General: cooperative, healthy appearing and no acute distress Resp: Effort & Inspection: normal respiratory effort and able to speak in complete sentences Cardio: Rate: regular rate Peripheral pulses: Peripheral pulses 2+ throughout GI: Palpation (GI): Soft to palpation Skin: General skin exam: no rashes or lesions noted Extrem: Other: right knee bandage clean dry and intact. [place] intact. No erythema or joint effusion. Calf supple nontender. Neurovascularly intact. Procedures Date of Service Date of Service: 11/11/23 Progress Note: A&P Assessment and plan (1) Status post total right knee replacement: Status: Acute Assessment and Plan: * Continue pain mgmnt * Continue lovenox dvt ppx * Continue PT for RT TKA - stair trial this afternoon * Dispo planning-Pending PT eval, pain mgmnt Need for continued inpatient stay: PT/Pain control Time Spent With Patient Time: Total time managing care of this patient today ____ minutes. Quality Stroke Does the patient have a stroke diagnosis?: No VTE Prior VTE?: No VTE Risk Level:: Surgical - very high VTE Device Contraindication: N/A - Device Ordered VTE Drug Contraindication: N/A - Med Ordered
--- NOTE | 2023-11-11 14:37 | MHC.CM.PN ---
Female s/p LTKA DP home with services. NA will provide home services. The patient will arrange for transportation home.
[2023-11-11] MEDS: Enoxaparin Sodium 40 MG/0.4 ML SYRINGE SUBCUT (17:33)
== END 2023-11-11 18:40 | disposition home health service (06) | DRG 470 ==
LOC: HO.SSSA 06:18 → HO.S3 11:10
PROVIDERS: Physician Assistant; Admitting Provider Orthopaedic Surgery; PCP Internal Medicine; Visit Provider Orthopaedic Surgery
PROC: 0SRC0J9 Replacement of Right Knee Joint with Synthetic Substitute, Cemented, Open Approach (ICD-10-PCS; CPT 27447; principal; 2023-11-09 07:30)
DX: M17.11 Unilateral primary osteoarthritis, right knee (principal); E03.9 Hypothyroidism, unspecified; F39 Unspecified mood [affective] disorder; G89.18 Other acute postprocedural pain; Z86.711 Personal history of pulmonary embolism; Z79.890 Hormone replacement therapy; Z79.899 Other long term (current) drug therapy
CPT/HCPCS: 36415; 80048; 82565; 85025; 86850; 86900; 86901; 87640; 87641; 88305; 88311; 97110; 97116; 97161; 97530; 99024; C1776; J0665; J0690; J1100; J1170; J1596; J1650; J2250; J2371; J2704; J3370; J7120

== ENCOUNTER → 2023-11-09 06:17 | Outpatient (BNV) | payer OTHER, SELFPAY | PROVIDERS: Admitting Provider Orthopaedic Surgery; PCP Internal Medicine; Visit Provider Orthopaedic Surgery | DX: Z47.1 Aftercare following joint replacement surgery (principal); Z96.651 Presence of right artificial knee joint | CPT/HCPCS: 27447; 99024; G0180 ==

== ENCOUNTER → 2023-11-09 06:17 | Outpatient (BNV) | payer OTHER, SELFPAY | PROVIDERS: Admitting Provider Orthopaedic Surgery; PCP Internal Medicine; Visit Provider Physician Assistant | DX: M17.11 Unilateral primary osteoarthritis, right knee (principal) | CPT/HCPCS: 99222 ==

== ENCOUNTER 2023-11-26 09:49 | Outpatient (REF) | payer OTHER, SELFPAY ==
--- NOTE | ~2023-11-26 | XR_ITS ---
EXAMINATION: XR KNEE, RIGHT CLINICAL INFORMATION: Pain. COMPARISON: Radiographs dated 11/04/2023. TECHNIQUE: AP and lateral views of the right knee. FINDINGS: Prosthetic components of the total knee arthroplasty are appropriately aligned without periprosthetic fracture or abnormal lucency. No component migration. No joint effusion. XR/XR knee RT 2V IMPRESSION: Appropriate alignment of the right total knee arthroplasty without evidence of complications.
== END 2023-11-26 09:50 | disposition home or self-care (01) ==
LOC: HO.HOSX 09:49
PROVIDERS: Visit Provider Physician Assistant
DX: Z47.1 Aftercare following joint replacement surgery (principal); Z96.651 Presence of right artificial knee joint
CPT/HCPCS: 73560

== ENCOUNTER 2023-11-26 13:10 | Outpatient (AMB) | payer OTHER, SELFPAY ==
--- NOTE | 2023-11-26 08:38 | MHC.OFFVIS ---
Intake Intake Visit Reasons: PO- RT TKA 11/09/23 Intake Note: Estefany a 53 year old female presents today for a post operative right TKA on 11/09/23 . Patient reports she is doing well, states very mild pain with a pain level 1 out of 10. States having tightness since yesterday. Allergies No Known Allergies Allergy (Verified 11/26/23 13:20) HPI PO- RT TKA 11/09/23 HPI Details 53-year-old female returns to the office today status post right total knee arthroplasty with Dr. Barker on 11/09/2023. She is ambulating with a cane she continues to do well. She has been discharged from home therapy and is ready to transition to outpatient therapy. 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 No erythema. No drainage. She has range of motion 0-95 degrees. Calf is supple nontender. She has good activation of her quad with performing straight leg raise. Neurovascularly intact. Results Reviewed Results Reviewed: Brief Operative Note Date of Service: 11/09/23 Pre-op diagnosis: Right knee degenerative joint disease Post-op diagnosis: same Procedure: Right total knee arthroplasty Implants: Nimo Triathlon cemented posterior stabilized total knee arthroplasty with a femoral component size 5 right, tibial component size 5, polyethylene liner size 5 with a 11 mm of thickness, an asymmetric patellar component size 29 with 9 mm of thickness Surgeon: Shree Barker MD X-rays of the right knee obtained in the office today show satisfactory alignment of total knee prosthesis Assessment & Plan Assessment & Plan (1) Status post total right knee replacement: Code(s): Z96.651 - Presence of right artificial knee joint Plan: Efrain removed, steri strips applied. She will begin to transition to Outpatient PT to continue working on ROM and quad strength. No driving for another 4 weeks. She will require ppx abx for dental procedures. She will f/u in 4 weeks, sooner if needed. Orders: Orders XR knee RT 2V Today M25.569 - Pain in unspecified knee Medications: New amoxicillin take 4 capsules 1 hr prior to dental procedure 2,000 mg (4 x 500 mg) PO ONCE 4 tabs 3RF 1 day Coding Level of Care Code Global (71227) Diagnoses Status post total right knee replacement Z96.651
== END 2023-11-26 13:46 | disposition home or self-care (01) ==
PROVIDERS: PCP Internal Medicine; Visit Provider Physician Assistant
DX: Z96.651 Presence of right artificial knee joint (principal)
CPT/HCPCS: 99024

== ENCOUNTER 2023-12-24 14:25 | Outpatient (AMB) | payer OTHER, SELFPAY ==
--- NOTE | 2023-12-24 14:33 | A.OFFVIS_ITS ---
Intake Intake Visit Reasons: PO- RT TKA 11/09/23 Intake Note: Estefany is a 53 year old female who presents for her post operative appointment s/p Right TKA 11/09/2023 . Patient reports she is feeling good and has no concerns. She continues with her physical therapy exercises. She has no longer taking narcotics for her discomfort. She would like to return to playing softball over the next few weeks. Allergies No Known Allergies Allergy (Verified 12/24/23 14:39) Medication List - Last Reconciled 12/25/23 by Shree Barker MD acetaminophen 650 mg (2 x 325 mg) PO Q6H PRN 30 days amoxicillin 2,000 mg (4 x 500 mg) PO ONCE 1 day celecoxib 200 mg PO BID 30 days docusate sodium 100 mg PO BID 90 days enoxaparin 40 mg (0.4 mL) subcut Q24H 42 days gabapentin 100 mg PO BEDTIME 7 days levothyroxine 200 mcg PO DAILY@0600 methocarbamol 750 mg PO TID 7 days oxycodone 5 mg PO Q4H PRN 7 days sertraline 75 mg PO DAILY walker Folding front wheeled walker PFSH Medical History Arthritis of right knee Mood disorder Osteoarthritis Hypothyroidism Hx of pulmonary embolus during Surgical History Hx of section Social History Household Members: Spouse and Children Housing: House Are you a primary family day care worker to a significant other at home: No Do you presently have visiting nurse or other home services: No Alcohol intake: current Patient Tobacco Use Status: Never used Tobacco Second Hand Smoke Exposure: No service: No Current occupational status: employed 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 Weiss continues to do very well after undergoing right total knee replacement surgery on 11/09/2023. She will continue with her physical therapy exercises. She does know to take antibiotics before any dental work. She will contact me prior to her follow-up appointment in 3 months should any questions or concerns arise. Feel free to call me at any time should questions regarding her orthopedic management arise. Coding Level of Care Code Global (21548) Diagnoses Status post total right knee replacement Z96.651
== END 2023-12-24 14:52 | disposition home or self-care (01) ==
PROVIDERS: PCP Internal Medicine; Visit Provider Orthopaedic Surgery
DX: Z96.651 Presence of right artificial knee joint (principal)
CPT/HCPCS: 99024

== ENCOUNTER → 2023-12-24 14:25 | Outpatient (BNVA) | payer OTHER, SELFPAY | PROVIDERS: PCP Internal Medicine; Visit Provider Orthopaedic Surgery ==

== ENCOUNTER 2024-02-25 09:13 | Outpatient (AMB) | payer OTHER, SELFPAY ==
--- NOTE | 2024-02-25 09:17 | MHC.OFFVIS ---
Intake Visit Reasons: Arthritis of left knee Intake Note: Estefany is a 53 year old female who presents with complaints of progressively worsening left knee pain. She did undergo right total knee replacement surgery on 11/09/2023. She denies any discomfort in her right knee. She describes her left knee pain as sharp and severe in nature, 10/10. Her left knee pain has gotten worse over the last few years in spite of continued non operative treatments. She has done physical therapy which aggravated her pain. She has also tried Tylenol and anti-inflammatory medicines which gave her minimal relief. She has had multiple injections. The most recent injection gave her only temporary relief. The patient has difficulty walking even short distances because of her pain. At this point her left knee pain is interfering with her activities of daily living and her ability to sleep well through the night. Allergies No Known Allergies Allergy (Verified 02/25/24 09:20) Medication List - Last Reconciled 02/25/24 by Shree Barker MD acetaminophen 650 mg (2 x 325 mg) PO Q6H PRN 30 days amoxicillin 2,000 mg (4 x 500 mg) PO ONCE 1 day celecoxib 200 mg PO BID 30 days docusate sodium 100 mg PO BID 90 days enoxaparin 40 mg (0.4 mL) subcut Q24H 42 days gabapentin 100 mg PO BEDTIME 7 days levothyroxine 200 mcg PO DAILY@0600 methocarbamol 750 mg PO TID 7 days oxycodone 5 mg PO Q4H PRN 7 days sertraline 75 mg PO DAILY walker Folding front wheeled walker [facility] Medical History Arthritis of right knee Mood disorder Osteoarthritis Hypothyroidism Hx of pulmonary embolus during Surgical History History of right knee surgery (~11/09/23) Hx of section Social History Household Members: Spouse and Children Housing: House Are you a primary healthcare consulting manager to a significant other at home: No Do you presently have visiting nurse or other home services: No Alcohol intake: current Patient Tobacco Use Status: Never used Tobacco Second Hand Smoke Exposure: No service: No Current occupational status: employed 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 Physical Exam Const Other: Well-nourished well-developed very friendly female awake alert and oriented x3 in no acute distress Extrem Other: Bilateral lower extremity examination shows good capillary refill, no skin lesions noted, normal sensation light touch Left knee examination shows a minimal effusion, palpable crepitus with range of motion, pain with range of motion, range of motion from -3 degrees to 115 degrees, no instability Results Reviewed Results Reviewed: X-rays of the patient's left knee show end-stage degenerative joint disease with grade 4 [id number] arthritis, subchondral sclerosis, osteophyte formation, no acute bony abnormalities Assessment & Plan Assessment & Plan (1) Arthritis of left knee: Code(s): M17.12 - Unilateral primary osteoarthritis, left knee Category: Medical Plan Ms. Weiss presents with progressively worsening left knee pain due to end-stage degenerative joint disease. I had a lengthy discussion with the patient regarding the treatment options. At this point she has failed continued non operative treatments. The risks and benefits of left total knee replacement surgery were discussed at length with the patient. The patient wishes to proceed with surgery later this year or early next year. She will contact my office to pick a surgery date. I will see her back prior to her surgery to answer any final questions that she might have. Feel free to call me at any time should questions regarding her orthopedic management arise. I spent 20 minutes in reviewing the patient's records and imaging studies, seeing the patient and documenting in the medical record. Coding Level of Care Code Est Pt Level 3 (40160) Diagnoses Arthritis of left knee M17.12
== END 2024-02-25 09:30 | disposition home or self-care (01) ==
PROVIDERS: PCP Internal Medicine; Visit Provider Orthopaedic Surgery
DX: M17.12 Unilateral primary osteoarthritis, left knee (principal)
CPT/HCPCS: 99213

== ENCOUNTER → 2024-02-25 09:13 | Outpatient (BNVA) | payer OTHER, SELFPAY | PROVIDERS: PCP Internal Medicine; Visit Provider Orthopaedic Surgery ==

== ENCOUNTER → 2024-06-13 08:59 | Outpatient (BNVA) | payer OTHER, SELFPAY | PROVIDERS: PCP Internal Medicine | DX: Z01.818 Encounter for other preprocedural examination (principal) ==

== ENCOUNTER 2024-07-07 08:11 | Outpatient (AMB) | payer OTHER, SELFPAY ==
--- NOTE | 2024-07-07 08:12 | A.OFFVIS_ITS ---
Intake Visit Reasons: Pre-Op: L TKA shasha/ 07/11/24 Intake Note: Estefany is a 53 year old female who presents with complaints of progressively worsening left knee pain. She did undergo right total knee replacement surgery on 11/09/2023. She denies any discomfort in her right knee. She describes her left knee pain as sharp and severe in nature, 10/10. Her left knee pain has gotten worse over the last few years in spite of continued non operative treatments. She has done physical therapy which aggravated her pain. She has also tried Tylenol and anti-inflammatory medicines which gave her minimal relief. She has had multiple injections. The most recent injection gave her only temporary relief. The patient has difficulty walking even short distances because of her pain. At this point her left knee pain is interfering with her activities of daily living and her ability to sleep well through the night. Allergies No Known Allergies Allergy (Verified 07/07/24 08:12) Medication List - Last Reconciled 07/07/24 by Shree Barker MD amoxicillin 2,000 mg (4 x 500 mg) PO ONCE 1 day levothyroxine 200 mcg PO DAILY@0600 sertraline 75 mg PO DAILY walker Folding front wheeled walker REPLACED BY [facility] Medical History Mood disorder Osteoarthritis Hypothyroidism Hx of pulmonary embolus during Arthritis of right knee Surgical History History of total right knee replacement (TKR) (11/09/23) Hx of section Social History Household Members: Other Household Members Other:: son 16 yrs Housing: House Are you a primary healthcare analyst to a significant other at home: No Do you presently have visiting nurse or other home services: No 75 years or older and lives alone: No Alcohol intake: current Comment: aware of trip hazard Patient Tobacco Use Status: Never used Tobacco Second Hand Smoke Exposure: No Advance Directives Date on File: 11/10/23 service: No Current occupational status: employed 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 Physical Exam Const Other: Well-nourished well-developed very friendly female awake alert and oriented x3 in no acute distress Extrem Other: Bilateral lower extremity examination shows good capillary refill, no skin lesio ns noted, normal sensation light touch Left knee examination shows a minimal effusion, palpable crepitus with range of motion, pain with range of motion, range of motion from -3 degrees to 115 degrees, no instability Results Reviewed Results Reviewed: X-rays of the patient's left knee show end-stage degenerative joint disease with grade 4 [id number] arthritis, subchondral sclerosis, osteophyte formation, no acute bony abnormalities Assessment & Plan Assessment & Plan (1) Arthritis of left knee: Code(s): M17.12 - Unilateral primary osteoarthritis, left knee Category: Medical Plan Ms. Weiss presents with progressively worsening left knee pain due to end- stage degenerative joint disease. I had a lengthy discussion with the patient regarding the treatment options. At this point she has failed continued non operative treatments. The risks and benefits of left total knee replacement surgery were discussed at length with the patient. The patient wishes to proceed with surgery. well services operator will be consulted following her surgery for home physical therapy and nursing. The patient will follow-up as instructed. Feel free to call me at any time should questions regarding her orthopedic management arise. I spent 21 minutes in reviewing the patient's records and imaging studies, seeing the patient and documenting in the medical record. Coding Level of Care Code Est Pt Level 3 (52086) Complex EM visit Add On G2211 Diagnoses Arthritis of left knee M17.12
== END 2024-07-07 08:28 | disposition home or self-care (01) ==
PROVIDERS: PCP Internal Medicine; Visit Provider Orthopaedic Surgery
DX: M17.12 Unilateral primary osteoarthritis, left knee (principal)
CPT/HCPCS: 99024

== ENCOUNTER → 2024-07-07 08:11 | Outpatient (BNVA) | payer OTHER, SELFPAY | PROVIDERS: PCP Internal Medicine; Visit Provider Orthopaedic Surgery ==

== ENCOUNTER 2024-07-11 06:13 | Day surgery (SDC) | payer OTHER, SELFPAY ==
--- NOTE | 2024-06-29 | ECG_ITS ---
Test Reason : PREOP Blood Pressure : / mmHG Vent. Rate : 050 BPM Atrial Rate : 050 BPM P-R Int : 144 ms QRS Dur : 088 ms QT Int : 456 ms P-R-T Axes : 010 -13 015 degrees QTc Int : 415 ms Sinus bradycardia Low voltage QRS Borderline ECG No previous ECGs available Referred By: Brianna Nascimento Electronically Signed By:TRAMAINE GRIFFITH
[2024-06-29 12:07] VITALS: BP 142/66; PULSE 58; RESP 16; O2SAT 100; BMI 45.7
--- NOTE | 2024-06-29 12:22 | P.CONAN_ITS ---
Documented by User: Brianna Nascimento NP 07/08/24 09:36 HPI - Anesthesia Eval Consult details Narrative: 53yo F for Left Knee Replacement Total, 07/11/24 s/p Right Knee Replacement Total 10/2023, panic attack after spinal with conversion to GA-LMA 4. Medically cleared No recent illness No CP/SOB with exercise 4 x's weekly Hypothyroid with rx Otherwise [facility] Active Problems Active Problems: All Active Problems Status post total right knee replacement (Acute) Arthritis of left knee (Acute) Elevated BP without diagnosis of hypertension (Acute) Wheezing (Acute) Cough with congestion of paranasal sinus (Acute) Past Medical History Medical History Mood disorder Osteoarthritis Hypothyroidism Hx of pulmonary embolus during Arthritis of right knee Family History Family history of problems with anesthesia: No Surgical History Surgical History History of total right knee replacement (TKR) (11/09/23) Hx of section History of Problems with Anesthesia: No Social History Social History Household Members: Other Household Members Other:: son 16 yrs Housing: House Are you a primary career coach to a significant other at home: No Do you presently have visiting nurse or other home services: No Alcohol intake: current Comment: aware of trip hazard Patient Tobacco Use Status: Never used Tobacco Second Hand Smoke Exposure: No Use of substances other than those prescribed or required for medical reasons: No Have you been hit, kicked, punched, or otherwise hurt by someone within the past year? 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 Meds Allergies Allergy/AdvReac Type Severity Reaction Status Date / Time No Known Allergies Allergy Verified 07/11/24 06:31 Home Medications ?Medication ?Instructions ?Recorded ?Confirmed ?Last Taken ?Type levothyroxine 200 mcg tablet 200 mcg PO DAILY@0600 03/04/22 07/11/24 07/11/24 06:37 History sertraline 50 mg tablet 75 mg PO DAILY 03/04/22 07/11/24 07/11/24 06:37 History Exam Height,Weight and Vital Signs: Height 5 ft 7 in Weight 132.5 kg Last Vital Signs Pulse 58 06/29/24 12:07 Resp 16 06/29/24 12:07 BP 142/66 H 06/29/24 12:07 Pulse Ox 100 06/29/24 12:07 O2 Del Method Room Air 06/29/24 12:07 Pertinent Lab Results Pertinent Lab Results: Lab Results 06/29/24 06/29/24 06/29/24 Range/Units 12:30 13:00 13:04 WBC 7.0 (4.8-10.8) X10*3/uL RBC 4.20 D (4.20-5.50) X10*6/uL Hgb 12.9 D (12.0-16.0) g/dl Hct 37.9 (37.0-47.0) % MCV 90.2 (80.0-98.0) fL MCH 30.7 (27.0-33.0) pg MCHC 34.0 (31.0-35.0) g/dl RDW 12.1 (11.0-16.0) % Plt Count 221 (160-400) X10*3/uL MPV 9.1 L (9.4-12.3) fL Absolute Nucleated RBC 0.000 (0.0-0.012) X10*3/uL Nucleated RBC % (auto) 0.0 (0.0-0.2) /100WBC Sodium 140 (135-145) mmol/L Potassium 4.0 (3.3-5.1) mmol/L Chloride 106 (96-108) mmol/L Carbon Dioxide 28 (22-29) mmol/L Anion Gap 10 L (12-20) BUN 12 (9-16) mg/dL Creatinine 0.81 (0.5-1.4) mg/dL Estim Creat Clear Calc 115.3 Estimated GFR > 60 Random Glucose 84 (60-115) mg/dL Calcium 9.0 D (8.4-10.2) mg/dL Nasal Screen MRSA (PCR) NEGATIVE (Negative) Nasal S. aureus Screen NEGATIVE (Negative) Nasal MRSA/S.aureus Interp SEE NOTE Blood Type A Positive Antibody Screen NEGATIVE Narrative Narrative: EKG 06/2024 Vent. Rate : 050 BPM Atrial Rate : 050 BPM P-R Int : 144 ms QRS Dur : 088 ms QT Int : 456 ms P-R-T Axes : 010 -13 015 degrees QTc Int : 415 ms Sinus bradycardia Low voltage QRS Borderline ECG No previous ECGs available Airway Mallampati Class: II TM Dist: >3cm Neck ROM: Full Loose/Missing/Broken Teeth: No Heart: RRR Lungs: CTAB Assessment and Plan Assessment Anesthesia Assessment: Anesthesia Plan Discussed and PAT Visit Final Anesthetic Review Family History of Problems with Anesthesia: No History of Problems with Anesthesia: No Documented by User: Rayna Kendrick MD 07/11/24 08:27 ON LICENSE OF [facility] Past Medical History Medical History Mood disorder Osteoarthritis Hypothyroidism Hx of pulmonary embolus during Arthritis of right knee Surgical History Surgical History History of total right knee replacement (TKR) (11/09/23) Hx of section Social History Social History Household Members: Other Household Members Other:: son 16 yrs Housing: House Are you a primary career coach to a significant other at home: No Do you presently have visiting nurse or other home services: No Alcohol intake: current Comment: aware of trip hazard Patient Tobacco Use Status: Never used Tobacco Second Hand Smoke Exposure: No Use of substances other than those prescribed or required for medical reasons: No Have you been hit, kicked, punched, or otherwise hurt by someone within the past year? 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 Meds Allergies Allergy/AdvReac Type Severity Reaction Status Date / Time No Known Allergies Allergy Verified 07/11/24 06:31 Home Medications ?Medication ?Instructions ?Recorded ?Confirmed ?Last Taken ?Type levothyroxine 200 mcg tablet 200 mcg PO DAILY@0600 03/04/22 07/11/24 07/11/24 06:37 History sertraline 50 mg tablet 75 mg PO DAILY 03/04/22 07/11/24 07/11/24 06:37 History Assessment and Plan Final Anesthetic Review NPO: Yes ASA Class: III Final Preanesthetic Review: No Changes in Pt Med Stat, Meds/Allgs Chart Reviewed and Consent Obtained/Reviewed Patient Risk: Intermediate Procedure Risk: Intermediate Anesthetic Plan Anesthetic Plan: GA, Neuraxial Block: and Regional Block Disposition: Standard PACU
[2024-06-29 14:08] LABS: Hematocrit 37.9 % (37.0-47.0); Hemoglobin 12.9 g/dl (12.0-16.0); Mean Corpuscular Hemoglobin 30.7 pg (27.0-33.0); Mean Corpuscular Volume 90.2 fL (80.0-98.0); Mean Platelet Volume 9.1 fL (9.4-12.3); Platelet Count 221 X10*3/uL (160-400); Red Cell Distribution Width 12.1 % (11.0-16.0)
[2024-06-29 14:10] LABS: MRSA Nasal PCR NEGATIVE (Negative); SA Nasal PCR NEGATIVE (Negative)
[2024-06-29 15:08] LABS: Anion Gap 10 (12-20); Blood Urea Nitrogen 12 mg/dL (9-16); Carbon Dioxide 28 mmol/L (22-29); Chloride 106 mmol/L (96-108); Creatinine Clr Calc Pharmacy 115.3; Estimated Glomerular Filt Rate > 60; Glucose Random 84 mg/dL (60-115); Sodium 140 mmol/L (135-145)
[2024-07-11] VITALS (10 sets, daily range): BP systolic 107–146; BP diastolic 56–92; PULSE 60–76; RESP 14–18; TEMP 36.3–37.2; O2SAT 94–99; BMI 45.4
[2024-07-11] MEDS: Lactated Ringers 1,000 ML 100 ML IVCONT ×3 (07:05→22:27)
[2024-07-11] MEDS: vancomycin/NS 2,000 MG/500 ML PLAST..BAG 250 MG IV ×2 (07:37→20:07)
--- NOTE | 2024-07-11 10:49 | P.BOP_ITS ---
Brief Operative Note Date of Service: 07/11/24 Pre-op diagnosis: Left knee degenerative joint disease Post-op diagnosis: same Procedure: Left total knee arthroplasty Implants: [place] [employer] cemented posterior stabilized total knee arthroplasty with a femoral component size 5 left, a tibial component size 4, polyethylene liner size 4 with 11 mm of thickness, an asymmetric patellar component size 29 with 9 mm of thickness Surgeon: Shree Barker MD Anesthesia: GLMA, regional and spinal Was an Distribution Field Technician used for this Procedure?: No Distribution Field Technician: Sophie King Estimated blood loss (mL): 200 Pathology: other (Bony fragments from the left femur, tibia and patella) Condition: stable Disposition: PACU
--- NOTE | 2024-07-11 10:50 | P.OP_ITS ---
Operative Note Operative Note Date of Service: 07/11/24 Narrative: After the patient was identified as Estefany Weiss and her left knee was initialed by myself the patient was brought to the holding area where a left leg nerve block was performed by the anesthesiologist in routine fashion. The patient was then brought to the operating room where spinal anesthesia were performed by the anesthesiologist in routine fashion. General anesthesia was then induced by the anesthesiologist in routine fashion because the patient was agitated after her spinal anesthetic during her right total knee arthroplasty performed previously. Because of the patient's obesity she was given both IV An cef and IV vancomycin preoperatively for infection prophylaxis. The patient's left lower extremity was prepped and draped in sterile fashion. A formal time- out was completed. The patient's left knee was placed onto a small bump to produce 30? of knee flexion during exposure. A #10 scalpel blade was used to make a midline incision extending 1 handbreadth proximal and distal to the patella. A second #10 scalpel blade was used to dissect the subcutaneous tissues down to the extensor mechanism. The subcutaneous flaps were maintained as thick as possible. A medial parapatellar arthrotomy was then performed using a #10 scalpel blade. The arthrotomy was begun just medial to the patellar tendon. The arthrotomy was continued 1 cm medial to the patella and then 5 mm into the medial aspect of the quadriceps tendon. The infrapatellar fat pad was partially excised to help with exposure. The soft tissue retinaculum was raised one-half of the way around the medial aspect of the proximal tibia. The patella was everted and the knee was flexed to 90?. There was no injury to the patellar tendon or its insertion onto the tibial tubercle. A drill bit was introduced into the distal aspect of the femur with a starting point 1 cm anterior to the origin of the posterior cruciate ligament. The intramedullary alignment jefry was put into place. The distal alignment guide was set for a 5 degree valgus cut. The distal cutting block was put into place and was held with 4 pins. The intramedullary alignment jefry was removed. Soft tissues were retracted in the distal femoral cut was made using a sagittal saw. The distal aspect of the femur measured to be a size 5 left component. Two drill holes were placed into the distal aspect of the femur marking 3? of external rotation. The distal cutting block was impacted into place and was held with 2 pins. Soft tissues were retracted and the 4 distal femoral cuts were made using a sagittal saw. Final notching and drilling of the distal aspect of the femur were performed in routine fashion. The trial femoral component was impacted into place. The knee was taken through a full range of motion. The patella tracked well. The patella was everted and the knee was flexed to 90?. The trial component was removed and our attention was directed to the proximal tibia. The medial and lateral menisci were removed using a #10 scalpel blade. A small rim of the medial meniscus was left intact to help prevent injury to the medial collateral ligament. A drill bit was then introduced into the proximal tibia with a starting point midway from medial to lateral and one-third of the way posteriorly. The intramedullary alignment jefry was put into place. The proximal tibial cutting guide was placed over the alignment jefry in line with the 2nd toe. The guide was held in place using 3 pins. The intramedullary alignment jefry was removed. Soft tissues were retracted and the proximal tibial cut was made using a sagittal saw. The proximal tibia measured to be a size 4 component. The tibial tray was put into place with an 11 mm liner. The femoral component was impacted into place. The knee was taken through a full range of motion. There was full flexion and full extension. There was no instability with varus or valgus stress testing with the knee in flexion or extension. The patella tracked well with no medially directed force. The rotation of the tibial tray was marked using electrocautery with the knee in extension. The patella was everted and the knee was flexed to 90?. All trial components were removed. The tibial tray was placed onto the proximal tibia in line with the electrocautery brayden. The tray was held in place using 3 pins. Final broaching of the proximal tibia was performed in routine fashion. The trial liner and trial femoral component were put into place. The knee was brought into extension and our attention was directed to the patella. The patella measured 25 mm in thickness. The patellar resection guide was set for a 10 mm resection. Soft tissues were retracted and the patella cut was made using a sagittal saw. The remaining patella measured 15 mm in thickness. The undersurface of the patella was measured to be a size 29 asymmetric component. Three drill holes were placed into the undersurface of the patella in routine fashion. The trial component was put into place. The knee was taken through a full range of motion. The patella tracked well. The patella was everted and the knee was flexed to 90?. All trial components were removed. The knee was once again brought into extension and placed onto a small bump. The knee joint was irrigated with copious amounts of normal saline solution via pulse lavage while the cement was mixed. The patella was everted and the knee was flexed to 90?. A small amount of cement was placed along the posterior aspects of the tibial and femoral components. Cement was then pressurized into the proximal tibia. The tibial component was impacted into place. Any excess cement was removed. The polyethylene liner was then impacted into place. Cement was then pressurized into the distal aspect of the femur. A small amount of cement was placed into the intramedullary canal to help reduce bleeding. The femoral component was impacted into place. Any excess cement was removed. The knee was then brought into extension. Cement was pressurized into the undersurface of the patella. The patellar component was put into place and was held with a patella clamp. Any excess cement was removed. Once the cement had hardened the patellar clamp was removed. The knee was taken through a full range of motion. There was full flexion and extension. There was no instability with varus or valgus stress testing with the knee in flexion or extension. The patella tracked well with no medially directed force. The knee joint was irrigated with copious amounts of normal saline solution via pulse lavage. Any significant bleeding vessels were coagulated. The patient's left knee was placed onto a small bump. The arthrotomy was closed with #2 Ethibond [id number] interrupted suture as well as #1 Vicryl [id number] interrupted suture. The wound was once again irrigated. The subcutaneous tissues were closed with 0 Vicryl and 2-0 Vicryl interrupted sutures. The skin was closed with skin carlitos. Dry sterile dressing and Max bandages were placed over the patient's left knee. The patient was awoken and extubated in the operating room. The patient was transferred to the recovery room in stable condition.
--- NOTE | 2024-07-11 11:00 | PHA.MEDREC ---
Pharmacy Consult ? Medication Reconciliation Pharmacy has reviewed the medication reconciliation completed by nursing.
--- NOTE | 2024-07-11 12:09 | HO.PM.IMCN ---
History of Present Illness Data of Consult Service Date: 07/11/24 Requesting physician: Sophie King Primary Care Provider: Alexa Thompson MD [facility] Reason for consult: medical management 53 year old female with history of hypothyroidism and mood disorder with remote history of PE during (2007) not on ac admitted to ortho surgery for OA L knee s/p TKA with consult placed to hospitalist service for medical management. Vital signs stable postoperatively. She has no complaints. Reports occassional alcohol use. No cigarettes or illicit drugs. Per ortho note, surgery was uncomplicated Review of Systems Review of Systems: Yes all other systems are reviewed and are negative PMFSH Medical History Mood disorder Osteoarthritis Hypothyroidism Hx of pulmonary embolus during Arthritis of right knee Surgical History History of total right knee replacement (TKR) (11/09/23) Hx of section Social History Household Members: Other Household Members Other:: son 16 yrs Housing: House Are you a primary child care leader to a significant other at home: No Do you presently have visiting nurse or other home services: No Alcohol intake: current Comment: aware of trip hazard Patient Tobacco Use Status: Never used Tobacco Second Hand Smoke Exposure: No Use of substances other than those prescribed or required for medical reasons: No Have you been hit, kicked, punched, or otherwise hurt by someone within the past year? 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 [employer] Allergies Allergy/AdvReac Type Severity Reaction Status Date / Time No Known Allergies Allergy Verified 07/11/24 06:31 Active Medications: Current Medications Acetaminophen (Acetaminophen 325 Mg Tablet) 650 mg PO Q6H PRN PRN Reason: Pain, Mild (Pain Scale 1-3), fever or headache Celecoxib (Celecoxib 200 Mg Capsule) 200 mg PO BID [facility] Docusate Sodium (Docusate Sodium 100 Mg Capsule) 100 mg PO BID [facility] Enoxaparin Sodium (Enoxaparin Sodium 40 Mg/0.4 Ml Syringe) 40 mg SUBCUT Q24H [facility] Gabapentin (Gabapentin 100 Mg Capsule) 100 mg PO BEDTIME [facility] Hydromorphone HCl (Hydromorphone Hcl 0.5 Mg/0.5 Ml Syringe) 0.25 mg IVPUSH Q4H PRN; Protocol PRN Reason: Pain, Severe (Pain Scale 7-10) Hydromorphone HCl (Hydromorphone Hcl 0.5 Mg/0.5 Ml Syringe) 0.5 mg IVPUSH Q4H PRN; Protocol PRN Reason: Pain, Severe (Pain Scale 7-10) Cefazolin Sodium/Dextrose (Ancef) 2 gm in 50 mls @ 100 mls/hr IV Q8H [facility] Stop: 07/12/24 00:01 Vancomycin HCl (Vancomycin/Ns) 2,000 mg in 500 mls @ 250 mls/hr IV POSTOP ONE Stop: 07/11/24 13:57 Lactated Ringer's (Lr) 1,000 mls @ 100 mls/hr IVCONT .Q10H [facility] Levothyroxine Sodium (Levothyroxine Sodium 200 Mcg Tablet) 200 mcg PO DAILY@0600 [facility] Magnesium Hydroxide (Milk Of Magnesia 30 Ml Oral.Susp) 30 ml PO DAILY PRN PRN Reason: Constipation Melatonin (Melatonin 3 Mg Tablet) 6 mg PO BEDTIME PRN PRN Reason: Insomnia Methocarbamol (Methocarbamol 500 Mg Tablet) 500 mg PO TID [facility] Oxycodone HCl (Oxycodone Hcl Immed Release 5 Mg Tablet) 5 mg PO Q4H PRN PRN Reason: Pain, Moderate(Pain Scale 4-6) Oxycodone HCl (Oxycodone Hcl Immed Release 5 Mg Tablet) 10 mg PO Q4H PRN PRN Reason: Pain, Moderate(Pain Scale 4-6) Oxycodone HCl (Oxycodone Hcl Er 10 Mg Tab.Er.12h) 10 mg PO BID [facility] Pharmacy Consult (Consult Rx Vancomycin Dosing) 1 each MISCELLANE DAILY PRN PRN Reason: Consult order Sertraline HCl (Sertraline Hcl 25 Mg Tablet) 75 mg PO DAILY [facility]ARR[facility] Sodium Chloride (0.9 % Sodium Chloride Flush 3 Ml Syringe) 3 ml IVFLUSH QSHIFT LARRY Home Medications ?Medication ?Instructions ?Recorded ?Confirmed ?Last Taken ?Type levothyroxine 200 mcg tablet 200 mcg PO DAILY@0600 03/04/22 07/11/24 07/11/24 06:37 History sertraline 50 mg tablet 75 mg PO DAILY 03/04/22 07/11/24 07/11/24 06:37 History Physical Exam Vital Signs and Narrative: Vital Signs: Last Vital Signs Temp 98 F 07/11/24 11:05 Pulse 66 07/11/24 11:05 Resp 16 07/11/24 11:05 BP 129/75 07/11/24 11:05 Pulse Ox 95 07/11/24 11:05 O2 Del Method Room Air 07/11/24 11:05 BMI result Body Mass Index 45.4 Constitutional - Awake and Alert, No apparent distress Eyes - PERRLA, EOMI Cardiovascular - S1S2, RRR, No edema Respiratory - Normal lung expansion, Normal respiratory effort, No respiratory distress, CTA bilaterally Gastrointestinal - NT / ND; +BS; No rebound or guarding Extremities - no calf tenderness bilaterally, no swelling Skin - Warm/Dry Neurological - Alert & oriented x3 Psychological - Appropriate affect Results Labs 06/29/24 13:04 06/29/24 13:04 Assessment and Plan (1) Status post total right knee replacement: Status: Acute Plan 53 year old female with history of hypothyroidism and mood disorder with remote history of PE during (2007) not on ac admitted to ortho surgery for OA L knee s/p TKA with consult placed to hospitalist service for medical management. #OA L Knee s/p TKA POD 0 -plan per ortho surgery #Hypothyroidism -levothyroxine #Mood disorder -continue zoloft #Remote hx PE -provoked due to . No longer on ac -dvt prophylaxis per ortho surgery Thank you for allowing me to participate in this consult. Signing off at this time. Please do not hesitate to call for further questions or for any acute medical issues.
[2024-07-11 13:45] LABS: Creatinine Clr Calc Pharmacy 109.4; Estimated Glomerular Filt Rate > 60
--- NOTE | 2024-07-11 14:02 | P.DS_ITS ---
DS: Providers Provider Date of Service: 07/13/24 Primary care physician: Alexa Thompson MD Consults: 07/11/24 11:58 Consult to Hospitalist Routine Comment: Consulting Provider: Hospitalist Reason For Exam: Routine medical management DS: Diagnosis Discharge Diagnosis (1) Status post total right knee replacement: Status: Acute DS: Summary Hospital Course Hospital Course: The patient underwent a successful left total knee arthroplasty, they were transferred to PACU and then to the floor to recover. During their stay, their vitals were stable, afebrile at 97.85. Labs were unremarkable, H/H 10.6/32.4. POD 1 they were started on Lovenox subq injections for DVT ppx, they also received Physical Therapy services twice a day. Prior to discharge, their dressing was clean dry and intact, and the plan was to be discharged home with VNA services. Time Attestation Discharge Coordination Time (in mins): 30 Quality: Safe Use of Opioids Does Pt have an Active Cancer Diagnosis on the Problem List?: No Quality: Stroke Does the patient have a stroke diagnosis?: No Physical Exam Vital Signs: Vital Signs: Last Vital Signs Temp 97.4 F 07/11/24 12:13 Pulse 60 07/11/24 12:13 Resp 14 07/11/24 12:13 BP 115/67 07/11/24 12:13 Pulse Ox 97 07/11/24 12:13 O2 Del Method Room Air 07/11/24 12:13 BMI result Body Mass Index 45.4 Const: General: cooperative, healthy appearing and no acute distress Resp: Effort & Inspection: normal respiratory effort and able to speak in complete sentences Cardio: Rate: regular rate Peripheral pulses: Peripheral pulses 2+ throughout GI: Palpation (GI): Soft to palpation Skin: Lesions: no lesions Rashes: no rashes Extrem: Other: left knee dressing is c/d/i. Able to dorsi/plantar flex. Calf is supple and nontender. Sensation intact. Pedal pulse intact. DS: Data Data Completed and Pending Completed studies during hospitalization [Text1]: Procedures Introduction of Anesthetic Agent into Peripheral Nerves and Plexi, Percutaneous Approach (11/09/23) Replacement of Right Knee Joint with Synthetic Substitute, Cemented, Open Approach (11/09/23) Pending studies at discharge: Pending at discharge 07/11/24 08:39 Surgical [PTH] Routine Labs on day of discharge: Laboratory Results - last 24 hr 07/11/24 13:11 Creatinine 0.85 Estim Creat Clear Calc 109.4 Estimated GFR > 60 Discharge Plan Discharge Patient Disposition: Home Health Service Referrals: [facility] [Other] - 1 Week Sophie King PA-C [Physician Community Living Coach] - 07/28/24 12:30 pm Discharge Medications: New celecoxib 200 mg Capsule 200 mg PO BID 30 Days Qty: 60 0RF methocarbamol 500 mg Tablet 500 mg PO TID 7 Days Qty: 21 0RF acetaminophen 325 mg Tablet 650 mg PO Q6H PRN (Reason: Pain, Mild (Pain Scale 1-3), fever or headache) 30 Days Qty: 240 0RF docusate sodium 100 mg Capsule 100 mg PO BID 30 Days Qty: 60 0RF gabapentin 100 mg Capsule 100 mg PO BEDTIME 7 Days Qty: 7 0RF oxycodone 5 mg Tablet 5 mg PO Q4H PRN (Reason: Pain, Moderate(Pain Scale 4-6)) 7 Days Qty: 42 0RF Rx Instructions: Partial Fill upon patient request. enoxaparin 40 mg/0.4 mL Syringe 40 mg subcut Q24H 42 Days Qty: 16.8 0RF Continued (DME) walker Misc See Rx Instructions .ROUTE .MEDSUPPLY Qty: 1 0RF Rx Instructions: Folding front wheeled walker levothyroxine 200 mcg tablet 200 mcg PO DAILY@0600 sertraline 50 mg tablet 75 mg PO DAILY Discharge Orders: Discharge Order (Routine); Ordered 07/13/24 Ordered By: Sophie King Diet: Advance to usual diet Activity on Discharge: Use cane or walker Activity Restrictions/Additional Instructions: Physical Therapy for ROM 0-120, quad strength, gait training. Use walker for ambulation Limit stair climbing, No shower, No tub bath, No driving Continue Lovenox for 6 weeks Keep Aquacel dressing clean, dry and intact. Follow up with orthopedics in 2 weeks Print Language: [place]
--- NOTE | 2024-07-11 14:03 | W.MHC.F2F ---
Service Date Service Date: 07/11/24 Encounter Date of encounter: 07/12/24 Reasons for Services Signs and symptoms assessed: s/p LTKA Pt. is considered homebound due to recent surgery. Unable to drive, poor balance, poor gait mechanics. Reason for physical therapy: home safety and mobility, therapeutic exercises, restore joint function, gait/transfer training and ADL training Homebound: Leaving the home is medically contraindicated at this time without the asist of a device and/or another person due th the listed conditions above and below. Reason homebound: unsteady gait / fall risk, leg weakness, pain with ambulation, poor balance / fall risk and unable to drive Certification: Based on the above findings, I certify that this patient is confined to the home and needs intermittent longterm care, physical therapy and/or speech therapy, or continues to need occupational therapy. The patient is under my care, and I have initiated the establishment of the plan of care. The patient will be followed by a physician who will periodically review the plan of care. Time Spent With Patient Time: Total time managing care of this patient today ____ minutes.
[2024-07-11] MEDS: methocarbamoL 500 MG TABLET PO ×2 (14:08→20:08)
[2024-07-11] MEDS: ceFAZolin Sodium/Dextrose,Iso 2 GM/50 ML PIGGYBACK IV ×2 (14:08→22:25)
[2024-07-11] MEDS: HYDROmorphone HCl 0.5 MG/0.5 ML SYRINGE 0.25 MG IVPUSH ×2 (14:08→15:47)
[2024-07-11] MEDS: oxyCODONE HCl Immed Release 5 MG TABLET 10 MG PO (16:12)
[2024-07-11] MEDS: Enoxaparin Sodium 40 MG/0.4 ML SYRINGE SUBCUT (17:31)
[2024-07-11] MEDS: HYDROmorphone HCl 0.5 MG/0.5 ML SYRINGE IVPUSH (20:08)
[2024-07-11] MEDS: Gabapentin 100 MG CAPSULE PO (20:08)
[2024-07-11] MEDS: Docusate Sodium 100 MG CAPSULE PO (20:09)
[2024-07-11] MEDS: Celecoxib 200 MG CAPSULE PO (20:09)
[2024-07-11] MEDS: 0.9 % Sodium Chloride Flush 3 ML SYRINGE IVFLUSH (20:18)
[2024-07-11] MEDS: oxyCODONE HCl ER 10 MG TAB.ER.12H PO (21:09)
[2024-07-12 03:15] VITALS: BP 119/62; PULSE 67; RESP 18; TEMP 36.3; O2SAT 98
[2024-07-12] MEDS: oxyCODONE HCl Immed Release 5 MG TABLET PO ×2 (04:49→15:41)
[2024-07-12 05:42] LABS: MANUAL DIFF FLAG NO
[2024-07-12 05:48] LABS: Basophils Percent Auto 0.2 % (0-2); Eosinophils Percent Auto 0.1 % (0-4); Hematocrit 32.4 % (37.0-47.0); Hemoglobin 10.6 g/dl (12.0-16.0); Imm Gran Abs Auto 0.05 X10*3/uL (0.00-0.03); Imm Gran Pct Auto 0.5 % (0.0-0.4); Lymphocytes Absolute Auto 1.5 X10*3/uL (1.2-4.9); Lymphocytes Percent Auto 15.1 % (20-40); Mean Corpuscular HGB Conc 32.7 g/dl (31.0-35.0); Mean Corpuscular Hemoglobin 29.9 pg (27.0-33.0); Mean Corpuscular Volume 91.3 fL (80.0-98.0); Mean Platelet Volume 8.9 fL (9.4-12.3); Monocytes Absolute Auto 0.9 X10*3/uL (0.1-1.2); Monocytes Percent Auto 9.5 % (2-11); Neutrophils Absolute Auto 7.4 x10*3/uL (2.0-8.3); Neutrophils Percent Auto 74.6 % (45-73); Platelet Count 193 X10*3/uL (160-400); Red Blood Count 3.55 X10*6/uL (4.20-5.50); Red Cell Distribution Width 12.2 % (11.0-16.0); White Blood Count 9.9 X10*3/uL (4.8-10.8)
[2024-07-12] MEDS: Levothyroxine Sodium 200 MCG TABLET PO (05:54)
[2024-07-12 06:21] LABS: Anion Gap 11 (12-20); Blood Urea Nitrogen 10 mg/dL (9-16); Calcium 8.2 mg/dL (8.4-10.2); Carbon Dioxide 26 mmol/L (22-29); Chloride 107 mmol/L (96-108); Creatinine Clr Calc Pharmacy 122.4; Estimated Glomerular Filt Rate > 60; Glucose Fasting 124 mg/dL (60-99); Potassium 3.8 mmol/L (3.3-5.1); Sodium 140 mmol/L (135-145)
[2024-07-12 07:45] VITALS: BP 120/58; PULSE 70; RESP 14; TEMP 36.4; O2SAT 94
[2024-07-12] MEDS: Celecoxib 200 MG CAPSULE PO ×2 (08:11→20:16)
[2024-07-12] MEDS: Docusate Sodium 100 MG CAPSULE PO ×2 (08:12→20:16)
[2024-07-12] MEDS: Sertraline HCL 25 MG TABLET 75 MG PO (08:12)
[2024-07-12] MEDS: oxyCODONE HCl ER 10 MG TAB.ER.12H PO ×2 (08:12→20:16)
[2024-07-12] MEDS: methocarbamoL 500 MG TABLET PO ×3 (08:12→20:16)
--- NOTE | 2024-07-12 08:19 | HO.POSTANES ---
Post Anesthesia Evaluation Post Anesthesia Evaluation Date of Service: 07/11/24 Vital Signs: Vital Signs Temp Pulse Resp BP Pulse Ox O2 Del Method 07/12/24 07:45 97.5 F 70 14 120/58 L 94 Room Air 07/12/24 03:15 97.4 F 67 18 119/62 98 Room Air 07/11/24 23:34 98.5 F 67 17 107/56 L 95 Room Air Anesthesia: Regional, Spinal and General Mental Status: Awake Pain Control: Satisfactory Nausea/Vomiting: None Hydration: Adequate Anesthesia-Related Issues: No Anes. Related Issues
--- NOTE | 2024-07-12 08:32 | PM.PNORT ---
Subjective Subjective Date of Service: 07/12/24 Interval history: POD1 s/p LTKA Patient is resting in bed comfortably No overnight events Patient reports pain No additional complaints Physical Exam Vital Signs: Vital Signs: Last Vital Signs Temp 97.5 F 07/12/24 07:45 Pulse 70 07/12/24 07:45 Resp 14 07/12/24 07:45 BP 120/58 L 07/12/24 07:45 Pulse Ox 94 07/12/24 07:45 O2 Del Method Room Air 07/12/24 07:45 BMI result Body Mass Index 45.4 Const: General: cooperative, healthy appearing and no acute distress Resp: Effort & Inspection: normal respiratory effort and able to speak in complete sentences Cardio: Rate: regular rate Peripheral pulses: Peripheral pulses 2+ throughout GI: Palpation (GI): Soft to palpation Skin: Lesions: no lesions Rashes: no rashes Extrem: Other: left knee dressing is c/d/i. Able to dorsi/plantar flex. Calf is supple and nontender. Sensation intact. Pedal pulse intact. Procedures Date of Service Date of Service: 07/12/24 Progress Note: A&P Assessment and plan (1) Status post total left knee replacement: Status: Acute Plan Continue pain mgmnt Begin Lovenox for dvt ppx begin PT for LTKA Dispo planning-Pending PT eval, pain mgmnt Reason for continued inpatient stay: BMI 45, difficulty ambulating, pending formal PT eval due to dizziness yesterday, needs coninued pain management Time Spent With Patient Time: Total time managing care of this patient today ____ minutes. Quality Stroke Does the patient have a stroke diagnosis?: No VTE Prior VTE?: No VTE Risk Level:: Medical - moderate - high VTE Device Contraindication: N/A - Device Ordered VTE Drug Contraindication: N/A - Med Ordered
--- NOTE | 2024-07-12 09:16 | MHC.CM.PN ---
PT LIVES WITH ,WILL BE DCD WITH [facility] ,HAS OWN RIDE HOME
--- NOTE | 2024-07-12 09:26 | MHC.CM.PN ---
PT LIVES WITH HER IS INDEPENDENT HAS OWN RIDE HOME DC PLAN HOME NO SERVIES
[2024-07-12] MEDS: Acetaminophen 325 MG TABLET 650 MG PO ×2 (10:21→17:19)
[2024-07-12] MEDS: Lactated Ringers 1,000 ML 100 ML IVCONT ×2 (10:22→17:21)
--- NOTE | 2024-07-12 11:41 | PC.NURSE ---
Pt. dizzy when ambulating with PT, BP dropped to 88/52 HR 51, once pt. sat on the recliner BP up to 112/61 HR 61, no other symptoms after sitting.
[2024-07-12 12:11] VITALS: RESP 18
[2024-07-12] MEDS: HYDROmorphone HCl 0.5 MG/0.5 ML SYRINGE IVPUSH ×2 (12:11→21:27)
[2024-07-12 15:20] VITALS: BP 107/56; PULSE 79; RESP 14; TEMP 36.6; O2SAT 98
[2024-07-12] MEDS: Enoxaparin Sodium 40 MG/0.4 ML SYRINGE SUBCUT (17:21)
[2024-07-12] MEDS: Gabapentin 100 MG CAPSULE PO (20:16)
[2024-07-12 23:15] VITALS: BP 118/72; PULSE 78; RESP 18; TEMP 36.6; O2SAT 99
[2024-07-13] MEDS: HYDROmorphone HCl 0.5 MG/0.5 ML SYRINGE IVPUSH (01:31)
[2024-07-13] MEDS: Lactated Ringers 1,000 ML 100 ML IVCONT (02:45)
[2024-07-13] MEDS: Levothyroxine Sodium 200 MCG TABLET PO (05:34)
[2024-07-13 05:43] LABS: Anion Gap 10 (12-20); Blood Urea Nitrogen 8 mg/dL (9-16); Calcium 8.2 mg/dL (8.4-10.2); Carbon Dioxide 28 mmol/L (22-29); Chloride 108 mmol/L (96-108); Creatinine Clr Calc Pharmacy 127.4; Estimated Glomerular Filt Rate > 60; Glucose Fasting 110 mg/dL (60-99); Potassium 4.1 mmol/L (3.3-5.1); Sodium 142 mmol/L (135-145)
[2024-07-13 08:13] VITALS: BP 144/79; PULSE 72; RESP 20; TEMP 36.1; O2SAT 99
[2024-07-13] MEDS: oxyCODONE HCl ER 10 MG TAB.ER.12H PO (08:18)
[2024-07-13] MEDS: methocarbamoL 500 MG TABLET PO ×2 (08:18→14:13)
[2024-07-13] MEDS: oxyCODONE HCl Immed Release 5 MG TABLET PO ×2 (08:19→12:26)
[2024-07-13] MEDS: Sertraline HCL 25 MG TABLET 75 MG PO (08:19)
[2024-07-13] MEDS: Celecoxib 200 MG CAPSULE PO (08:19)
[2024-07-13] MEDS: Docusate Sodium 100 MG CAPSULE PO (08:19)
--- NOTE | 2024-07-13 09:03 | MHC.CM.PN ---
pt dcd home with [facility] has own transport home
--- NOTE | 2024-07-13 10:42 | P.F2F_ITS ---
Service Date Service Date: 07/13/24 Encounter Date of encounter: 07/13/24 Reasons for Services Signs and symptoms assessed: s/p LTKA Pt. is considered homebound due to recent surgery. Unable to drive, poor balance, poor gait mechanics. Reason for physical therapy: home safety and mobility, therapeutic exercises, restore joint function, gait/transfer training, assess need for DME and ADL training Homebound: Leaving the home is medically contraindicated at this time without the asist of a device and/or another person due th the listed conditions above and below. Reason homebound: unsteady gait / fall risk, leg weakness, pain with ambulation, pain with transfers, poor balance / fall risk and unable to drive Certification: Based on the above findings, I certify that this patient is confined to the home and needs intermittent correction care, physical therapy and/or speech therapy, or continues to need occupational therapy. The patient is under my care, and I have initiated the establishment of the plan of care. The patient will be followed by a physician who will periodically review the plan of care. Time Spent With Patient Time: Total time managing care of this patient today ____ minutes.
[2024-07-13 12:40] VITALS: BP 190/91; PULSE 100; RESP 18; TEMP 36.7; O2SAT 96
--- NOTE | 2024-07-13 13:12 | MHC.CM.PN ---
PT AND HER HAVE ADMINSTERED LOVENOX IN THE PAST AND FEEL COMFORTABLE DOING SO AGAIN
[2024-07-13] MEDS: Acetaminophen 325 MG TABLET 650 MG PO (14:13)
--- NOTE | 2024-07-13 14:25 | PC.NURSE ---
Pt. stated that she did not want any Lovenox teaching since the pt. and her know how to do it. Pt. stated she had a knee surgery in the past and also she had blood clot in the past where either herself or her were administering Lovenox injections to her.
[2024-07-13] MEDS: Enoxaparin Sodium 40 MG/0.4 ML SYRINGE SUBCUT (14:54)
== END 2024-07-13 15:09 | disposition home health service (06) ==
LOC: HO.SSS 06:13 → HO.S3 12:51
PROVIDERS: Nurse Practitioner; Physician Assistant; PCP Internal Medicine; Visit Provider Orthopaedic Surgery
PROC: (CPT 27447; principal; 2024-07-11 07:30)
DX: M17.12 Unilateral primary osteoarthritis, left knee (principal); Z96.651 Presence of right artificial knee joint; E03.9 Hypothyroidism, unspecified; F39 Unspecified mood [affective] disorder; Z86.711 Personal history of pulmonary embolism; Z79.899 Other long term (current) drug therapy; Z98.890 Other specified postprocedural states
CPT/HCPCS: 27447; 36415; 80048; 82565; 85025; 85027; 86850; 86900; 86901; 87640; 87641; 88305; 88311; 93005; 97110; 97116; 97161; 97530; C1776; J0131; J0171; J0665; J0690; J1100; J1170; J1650; J2250; J2405; J2704; J3010; J3370; J7120

== ENCOUNTER → 2024-07-11 06:13 | Outpatient (BNV) | payer OTHER, SELFPAY | PROVIDERS: PCP Internal Medicine; Visit Provider Orthopaedic Surgery | DX: Z47.1 Aftercare following joint replacement surgery (principal); Z96.652 Presence of left artificial knee joint | CPT/HCPCS: 27447; 99024; G0180 ==

== ENCOUNTER → 2024-07-11 09:33 | Outpatient (BNV) | payer OTHER, SELFPAY | PROVIDERS: Admitting Provider Physician Assistant; PCP Internal Medicine; Visit Provider Physician Assistant | DX: Z96.651 Presence of right artificial knee joint (principal) | CPT/HCPCS: 99222 ==

== ENCOUNTER 2024-07-28 10:12 | Outpatient (REF) | payer OTHER, SELFPAY ==
--- NOTE | ~2024-07-28 | XR_ITS ---
EXAMINATION: XR RIGHT KNEE 1 VIEW CLINICAL INFORMATION: Pain in unspecified knee M25.569. COMPARISON: XR Right knee 11/26/2023 TECHNIQUE: One view of the right knee. FINDINGS: Patient is status post total knee arthroplasty. Components are in expected orientation. No periprosthetic fracture identified. No gross abnormality appreciated on AP imaging of the right knee. IMPRESSION: Unremarkable post arthroplasty radiograph of the right knee. Electronically signed by: Zach Anglin MD 09/29/2024 09:01 AM [facility]INT[facility]
== END 2024-07-28 10:13 | disposition home or self-care (01) ==
LOC: HO.HOSX 10:12
PROVIDERS: Visit Provider Physician Assistant
DX: M25.569 Pain in unspecified knee (principal)
CPT/HCPCS: 73560; 73562

== ENCOUNTER 2024-07-28 12:25 | Outpatient (AMB) | payer OTHER, SELFPAY ==
--- NOTE | 2024-07-28 12:46 | A.OFFVIS_ITS ---
Intake Visit Reasons: 2WK PO: L TKA shasha/ 07/11/24 Intake Note: Estefany is a 53 year old female who presents today for a post op appointment s/p Left TKA shasha/ 07/11/24. Pt states she is doing very good. Allergies No Known Allergies Allergy (Verified 07/11/24 06:31) HPI HPI 2WK PO: L TKA w/ 07/11/24: Details: 53-year-old female who presents in the office today 17 days status post left total knee arthroplasty which was performed on 07/11/[address] Barker. While in the office today, the patient reports overall she is doing very good. PFSH Medical History Mood disorder Osteoarthritis Hypothyroidism Hx of pulmonary embolus during Arthritis of right knee Surgical History History of total right knee replacement (TKR) (11/09/23) Hx of section Social History Household Members: Spouse and Family Household Members Other:: son 16 yrs Housing: House Housing Other:: stairs into house and within house Are you a primary long term care social worker to a significant other at home: No Do you presently have visiting nurse or other home services: No 75 years or older and lives alone: No Alcohol intake: current Comment: aware of trip hazard Patient Tobacco Use Status: Never used Tobacco Second Hand Smoke Exposure: No Advance Directives Date on File: 11/10/23 service: No Current occupational status: employed 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 [place] intact. No surrounding erythema or drainage. No signs of infection. Range of motion is from 0-120 degrees. NVI. Assessment & Plan Assessment & Plan (1) Status post total left knee replacement: Code(s): Z96.652 - Presence of left artificial knee joint Category: Surgical Plan Ms. Weiss is a 53-year-old female who presents in the office today 17 days status post left total knee arthroplasty which was performed on 07/11/[address] Barker. While in the office today, the patient reports overall she is doing very good. Efrain were removed and steri-strips were applied. She is walking without any assistive devices while in the office today. The patient was encouraged to continue with physical therapy. I sent a prescription for an antibiotic, amoxicillin 2,000 mg PO once, prophylactically for possible dental work in the future. However, the patient was educated they should not have any major dental work for the first 3 months post op after the left total knee arthroplasty. Follow-up will be in [address] Barker, or sooner if needed. X-rays of the left knee which were obtained while in the office today and were reviewed by me, Sophie King PA-C, revealed: Intact orthopedic hardware with proper alignment. Orders: Orders XR knee LT 3V Today M25.569 - Pain in unspecified knee XR knee RT 1V Today M25.569 - Pain in unspecified knee Medications: New amoxicillin 2,000 mg (4 x 500 mg) PO ONCE 4 tabs 0RF take 4 tabs by mouth 1 hour prior to dental ppx 1 day Patient Instructions: Scribed by Diana Galan, medical donation professional, for Sophie King PA-C on 07/28/24 at 12:49 pm EST. Coding Level of Care Code Global (07177) Diagnoses Status post total left knee replacement Z96.652
== END 2024-07-28 13:07 | disposition home or self-care (01) ==
PROVIDERS: PCP Internal Medicine; Visit Provider Physician Assistant
DX: Z96.652 Presence of left artificial knee joint (principal)
CPT/HCPCS: 99024

== ENCOUNTER 2024-08-18 09:15 | Outpatient (AMB) | payer OTHER, SELFPAY ==
[2024-08-18 09:18] VITALS: BMI 45.3
--- NOTE | 2024-08-18 09:18 | A.OFFVIS_ITS ---
Vital Signs 08/18/24 09:18 Height 5 ft 7 in Weight 289 lb BMI 45.3 Intake Visit Reasons: 6WK PO: L TKA w/ 07/11/24 Intake Note: Estefany is a 53 yo female who presents today post-operatively s/p Left TKA by Dr. Barker, DOS: 07/11/24. The patient reports mild intermittent discomfort in her left knee. She denies any fevers or chills. She did play a softball game last week with only mild discomfort. Allergies No Known Allergies Allergy (Verified 08/18/24 09:21) Medication List - Last Reconciled 08/18/24 by Shree Barker MD acetaminophen 650 mg (2 x 325 mg) PO Q6H PRN 30 days amoxicillin 2,000 mg (4 x 500 mg) PO ONCE 1 day celecoxib 200 mg PO BID 30 days docusate sodium 100 mg PO BID 30 days levothyroxine 200 mcg PO DAILY@0600 methocarbamol 500 mg PO TID 7 days sertraline 75 mg PO DAILY walker Folding front wheeled walker PFS Medical History Mood disorder Osteoarthritis Hypothyroidism Hx of pulmonary embolus during Arthritis of right knee Surgical History History of total right knee replacement (TKR) (11/09/23) Hx of section Social History Household Members: Spouse and Family Household Members Other:: son 16 yrs Housing: House Housing Other:: stairs into house and within house Are you a primary primary health care nurse to a significant other at home: No Do you presently have visiting nurse or other home services: No 75 years or older and lives alone: No Alcohol intake: current Comment: aware of trip hazard Patient Tobacco Use Status: Never used Tobacco Second Hand Smoke Exposure: No Advance Directives Date on File: 11/10/23 service: No Current occupational status: employed 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 She will continue with her physical therapy exercises. She does know to take antibiotics before any dental work. She will contact me prior to her follow-up appointment in 3 months should any questions or concerns arise. Feel free to call me at any time should questions regarding her orthopedic management arise. Coding Level of Care Code Global (14368) Diagnoses Left knee pain M25.562
== END 2024-08-18 09:34 | disposition home or self-care (01) ==
LOC: HO.HOS 09:16
PROVIDERS: PCP Internal Medicine; Visit Provider Orthopaedic Surgery
DX: M25.562 Pain in left knee (principal)
CPT/HCPCS: 99024

== ENCOUNTER → 2024-08-18 09:15 | Outpatient (BNVA) | payer OTHER, SELFPAY | PROVIDERS: PCP Internal Medicine; Visit Provider Orthopaedic Surgery ==

== ENCOUNTER 2025-01-10 08:40 | Outpatient (AMB) | payer OTHER, SELFPAY ==
--- NOTE | 2025-01-10 08:56 | MHC.OFFVIS ---
Vital Signs 01/10/25 08:58 Height 5 ft 7 in Weight 289 lb BMI 45.3 Intake Visit Reasons: Bilateral knee pains Intake Note: Estefany is a 54 year old female who presents with complaints of intermittent discomfort in both of her knees after undergoing right total knee replacement surgery on 11/09/2023 as well as left total knee replacement surgery on 07/11/2024. She continues with her exercise program. She denies any locking or giving way. She denies any fevers or chills. Allergies No Known Allergies Allergy (Verified 01/10/25 09:05) [facility] Medical History Mood disorder Osteoarthritis Hypothyroidism Hx of pulmonary embolus during Arthritis of right knee Surgical History History of total right knee replacement (TKR) (11/09/23) Hx of section Social History Household Members: Spouse and Family Household Members Other:: son 16 yrs Housing: House Housing Other:: stairs into house and within house Are you a primary manager medicare to a significant other at home: No Do you presently have visiting nurse or other home services: No 75 years or older and lives alone: No Alcohol intake: current Comment: aware of trip hazard Patient Tobacco Use Status: Never used Tobacco Second Hand Smoke Exposure: No Advance Directives Date on File: 11/10/23 service: No Current occupational status: employed 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 Physical Exam Vital Signs: BMI result Body Mass Index 45.3 Const Other: Well-nourished well-developed very friendly female awake alert and oriented x3 in no acute distress Extrem Other: Bilateral lower extremity examination shows good capillary refill, no skin lesions noted, normal sensation light touch Bilateral knee examination shows that the surgical incisions are well healed, no erythema, full active extension and flexion to 120 degrees, her patellae track well Results Reviewed Results Reviewed: X-rays of the patient's bilateral knees taken today show total knee arthroplasties in good position with no signs of loosening, no acute bony abnormalities Assessment & Plan Assessment & Plan (1) Right knee pain: Code(s): M25.561 - Pain in right knee Category: Medical (2) Left knee pain: Code(s): M25.562 - Pain in left knee Category: Medical Plan Ms. Weiss continues to do well after undergoing bilateral total knee replacement surgeries. She will continue with her exercise program. She does know to take antibiotics before any dental work. She will contact me prior to her annual follow-up appointment should any questions or concerns arise. Feel free to call me at any time should questions regarding her orthopedic management arise. I spent 21 minutes in reviewing the patient's records and imaging studies, seeing the patient and documenting in the medical record. Orders: Orders XR knee RT 3V Today M25.561 - Pain in right knee XR knee LT 3V Today M25.562 - Pain in left knee Coding Level of Care Code Est Pt Level 3 (88269) Complex EM visit Add On G2211 Diagnoses Right knee pain M25.561 Left knee pain M25.562
[2025-01-10 08:58] VITALS: BMI 45.3
== END 2025-01-10 09:23 | disposition home or self-care (01) ==
LOC: HO.HOS 08:40
PROVIDERS: PCP Internal Medicine; Visit Provider Orthopaedic Surgery
DX: M25.561 Pain in right knee (principal); M25.562 Pain in left knee; Z96.653 Presence of artificial knee joint, bilateral
CPT/HCPCS: 99213

== ENCOUNTER → 2025-01-10 08:46 | Outpatient (BNV) | payer OTHER, SELFPAY | PROVIDERS: Visit Provider Radiology Diagnostic Radiology | DX: M25.562 Pain in left knee (principal); M25.561 Pain in right knee | CPT/HCPCS: 73562 ==

== ENCOUNTER 2025-01-10 09:40 | Outpatient (REF) | payer OTHER, SELFPAY ==
--- NOTE | ~2025-01-10 | XR_ITS ---
EXAMINATION: XR KNEE, RIGHT CLINICAL INFORMATION: M25.561 - Pain in right knee COMPARISON: July 28, 2024. TECHNIQUE: Three views of the right knee. FINDINGS: There is a metallic prosthesis with a femoral and tibial component well-seated in the osseous structures. There is loosening involving the medial femoral condyle and the inferior medial tibial plateau. No gross malalignment. XR/XR knee RT 3V IMPRESSION: Loosening involving the medial femoral condyle and medial tibial plateau. Electronically signed by: Kalia Carrillo MD 01/11/2025 10:44 AM EDT
--- NOTE | ~2025-01-10 | XR_ITS ---
EXAMINATION: XR KNEE, LEFT CLINICAL INFORMATION: M25.562 - Pain in left knee COMPARISON: July 28, 2024 TECHNIQUE: Three views of the left knee. FINDINGS: Metallic prosthesis with a femoral and tibial component well-seated in the osseous structures. There is loosening along the medial femoral condyle.. XR/XR knee LT 3V IMPRESSION: Total left knee arthroplasty prosthesis with loosening on the medial femoral condyle. Electronically signed by: Kalia Carrillo MD 01/11/2025 07:15 AM EDT
== END 2025-01-10 09:41 | disposition home or self-care (01) ==
LOC: HO.HOSX 09:40
PROVIDERS: Visit Provider Orthopaedic Surgery
DX: M25.561 Pain in right knee (principal); M25.562 Pain in left knee
CPT/HCPCS: 73562

== ENCOUNTER 2025-08-16 13:04 | Outpatient (AMB) | payer OTHER, SELFPAY ==
--- NOTE | 2025-08-16 13:17 | A.OFFPC_ITS ---
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 Intake Note: New patient to establish care and cpe Load Out Person Required: No Allergies No Known Allergies Allergy (Verified 08/16/25 13:18) Medication List - Last Reconciled 08/16/25 by VARUN Geronimo- levothyroxine 200 mcg PO DAILY@0600 sertraline 75 mg PO DAILY tirzepatide (weight loss) (Zepbound) mg subcut walker Folding front wheeled walker Tobacco use date assessed: 08/16/25 Dental Screening Dental Screen Date: 08/16/25 Did you have a dental visit in the last 12 months?: No Did you have a dental problem in the last 6 months where you did not have access to dental care?: No Was dental information given to patient?: Patient has dentist HPI HPI Comments History of Present Illness Details 54 y/o F with hypothyroid, OA, Hx of DVT LLE in , MDD, obesity s/p L TKR, s/p R TKR, c section Social: 1 child alive and well; Lives w/ and son. 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 Previous PCP Dr Murphy ([facility], records rec'd and reviewed. Hypothyroidism: - The patient has a 25-year history of h ypothyroidism and is managed with levothyroxine. - Her TSH was last checked during her ysical in the previous year, and she has a current 90-day supply of her medication. Major Depressive Disorder: - The patient was diagnosed many years a go with what she was told was Premenstrual Dysphoric Disorder (PMDD) and has been taking sertraline ever since. - She reports her mood is currently good on this medication. Obesity: - The patient has a history of obesity w ith a BMI of 43.2. - She previously used Zepbound but disco ntinued it, stating a preference for managing her weight with diet and exercise. History of Deep Vein Thrombosis LLE - The patient has a history of a deep ve in thrombosis (DVT) in her groin that occurred during 18 years ago. - She clarified this was not a pulmonary embolism and was treated with Coumadin and Lovenox at the time with no recurrence. Health Maintenance: - The patient is establishing care and b rought records from her previous provider, which include a physical from last August, mammogram results, and Cologuard test results. - Her tetanus immunization is up-to-date , with the last one received in 2021. - She has not received an influenza vacc ine. Past Medical History - Hypothyroidism, diagnosed approximatel y 25 years ago. - Major Depressive Disorder, diagnosed m any years ago as PMDD. - Obesity with a BMI of 43.2. - History of Deep Vein Thrombosis in the groin during 18 years ago, treated with Coumadin and Lovenox. - Surgical History: Bilateral total knee replacements, with the second one in June of the previous year; section 18 years ago. Review of Systems - General: Denies acute complaints. - Psychiatric: Reports mood is good. - Musculoskeletal: Reports feeling very well after bilateral knee replacements, with ability to run bases during softball. - Cardiovascular: Denies lower extremity swelling. - All other systems reviewed and are neg ative. Physical Exam General: Well developed, well nourished, in no acute distress. Appears stated age. Obesity with a BMI of 43.2. Head: Normocephalic, atraumatic. Eyes: Pupils are equal, round and reactive to light and accommodation. Conjunctivae are clear. Vision grossly normal. Lungs: Clear to auscultation bilaterally. No rales, rhonchi or wheeze noted. Good air flow in all pereira. Heart: Regular rate and rhythm. No murmurs, click, rubs or gallops are noted. Musculoskeletal: Joints are nontender, without swelling, redness, or effusions. Pulses: Peripheral pulses are equal and palpable bilaterally. Extremities: No clubbing, cyanosis nor edema is noted. Psych: Mood and affect appropriate. Mood is good, stable on sertraline for major depressive disorder. Medical Decision Making The patient is a 54-year-old female here to establish care. Her chronic conditions, including hypothyroidism and major depressive disorder, are stable on her current medications, levothyroxine and sertraline, for which refills will be provided for continuity. It is important to correct her medical record to reflect a history of DVT rather than a PE, as this has implications for future risk assessment. A brief physical exam today was unremarkable. Comprehensive lab work including a CBC, CMP, lipid panel, TSH, diabetes screen, urinalysis with microalbumin, B12, and vitamin D is ordered to obtain baseline values and for routine health screening. A follow-up visit for a full physical exam and review of these results is scheduled for next month. Plan 1. Establishment Of Care / [facility] - Baseline laboratory studies were order ed, including a CBC, CMP, lipid panel, TSH, diabetes screen, urinalysis with microalbumin, B12, and vitamin D. - The patient will have labs drawn today . - A follow-up appointment is scheduled f or next month for a complete physical exam and to review lab results. - The patient was instructed on how to u se the patient portal for communication. 2. Hypothyroidism - Continue current levothyroxine dose. - A new prescription will be sent to the pharmacy to ensure no interruption in therapy. - TSH will be checked as part of today's lab order to monitor therapeutic levels. 3. Major Depressive Disorder - Continue sertraline as prescribed. - Patient reports her mood is good and s table. 4. History Of Deep Vein Thrombosis LLE - The patient's medical record has been updated to accurately reflect a history of DVT, not a pulmonary embolism. 5. Obesity - The patient's decision to discontinue Zepbound and focus on diet and exercise is supported. - Her commitment to physical activity, s uch as playing softball, is noted and encouraged. Patient Instructions - Please stop at the front end web developer to sched ule your appointment for a physical exam next month. - Go to the lab to have your blood drawn today. - We will review your lab results togeth er at your next appointment. I will contact you sooner if anything is urgent. - Continue taking your current medicatio ns. I have sent refills for levothyroxine to your pharmacy. - Use the [facility] patient portal for any non-urgent questions or requests. Make sure you select my name when sending a message. - For urgent issues, you can use our [facility] k-in centers in [place] or [place]. The addresses are on your after-visit summary. Consent The patient provided verbal consent for lab work to be drawn today after the plan was discussed. Patient was informed and verbally consented to the use of an ambient scribe for clinic note documentation during this visit. Total time spent caring for the patient today was 45 minutes. This includes time spent before the visit reviewing the chart, time spent during the visit, and time spent after the visit on documentation, reviewing laboratory results, diagnostic imaging, medications, performing a medically necessary evaluation, counseling on diagnoses, care coordination, ordering appropriate tests, ordering appropriate medications, review of tests performed by other providers, reporting test results with the patient, communication with other healthcare providers. [facility] Medical History (Updated 08/16/25 @ 15:06 by VARUN Geronimo-AMOS) Arthritis Arthritis of left knee Arthritis of right knee Hx of mammogram (~07/2024) Hypothyroidism Incontinence Migraines Osteoarthritis Thyroid disorder Surgical History (Updated 08/16/25 @ 15:06 by VARUN Geronimo-AMOS) History of total right knee replacement (TKR) (11/09/23) Hx of section Hx of colonoscopy (~06/2025) Status post total left knee replacement Status post total right knee replacement Total knee replacement status Family History (Updated 08/16/25 @ 13:32 by Surinder Lawler MA) Mother HTN (hypertension) Thyroid disorder Maternal Grandmother Diabetes Sister Thyroid disorder Father Substance abuse Social History (Updated 08/16/25 @ 13:28 by Surinder Lawler MA) Household Members: Spouse and Family Household Members Other:: son 16 yrs Both parents involved: No Caregiver staying overnight: No Housing: House Housing Other:: stairs into house and within house Are you a primary director of career resources to a significant other at home: No Do you presently have visiting nurse or other home services: No 75 years or older and lives alone: No Alcohol intake: current Alcohol intake frequency: a few times a week Comment: aware of trip hazard Patient Tobacco Use Status: Never used Tobacco e-Cigarette/Vaping Use: Never Used Second Hand Smoke Exposure: No Advance Directives Date on File: 11/10/23 service: No Current occupational status: employed 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 1. Little interest or pleasure in doing things: not at all 2. Feeling down, depressed, or hopeless: not at all 3. Trouble falling or staying asleep, or sleeping too much: not at all 4. Feeling tired or having little energy: not at all 5. Poor appetite or overeating: not at all 6. Feeling bad about yourself - or that you are a failure or have let yourself or your family down: not at all 7. Trouble concentrating on things, such as reading the newspaper or watching television: not at all 8. Moving or speaking so slowly that other people could have noticed. Or the opposite - being so fidgety or restless that you have been moving around a lot more than usual: not at all 9. Thoughts that you would be better off or of hurting yourself in some way: not at all Total score: 0 Depression Screening Interpretation: Negative Depression Screening Done: Yes 43818 - PHQ-9 Billing: Yes Source: Developed by Drs. Buddy Freitas, Jerrica Tavares, Dev Valles and colleagues, with an educational arturo from [employer]. Thrive Questionnaire Date Thrive assessed: 08/16/25 I am a: Patient What is your living situation today?: I have a steady place to live Within the past 12 months, did the food you bought not last and you didn't have the money to get more?: Never true Within the past 12 months, did you worry whether your food would run out before you got money to buy more?: Never true Do you have trouble paying for medicines?: No Do you have trouble getting transportation to medical appointments?: No Do you have trouble paying your heating and electricity bill?: No Do you have trouble taking care of your child, family member or friend?: No Do you have trouble with day-to-day activities such as bathing, preparing meals, shopping, managing finances, etc.?: No Are you currently unemployed and looking for a job?: No Are you interested in more education?: No Please select the resources that you would like help with: None Currently or been in a relationship where the following occur: No concerns reported THRIVE Score: 0 AUDIT C Alcohol Use Questionnaire (AUDIT-C) 1. How often do you have a drink containing alcohol?: 2-4 times a month 2. How many drinks containing alcohol do you have on a typical day when you are drinking?: 3 or 4 3. How often do you have six or more drinks on one occasion?: Less than monthly Total Score: 4 Score Reviewed/Action Taken: Yes GERA-7 AMB Questionnaire GERA-7 Date GERA - 7 assessed: 08/16/25 Feeling nervous, anxious, or on edge: 1 = Several days Not being able to stop or control worryin = Not at all Worrying too much about different things: 0 = Not at all Trouble relaxin = Several days Being so restless that it is hard to sit still: 0 = Not at all Becoming easily annoyed or irritable: 1 = Several days Feeling afraid as if something awful might happen: 0 = Not at all Total GERA-7 score (0-4 normal; 5-9 mild; 10-14 moderate; 15-21 severe): 3 Source: Developed by Drs. Buddy Freitas, Jerrica Tavares, Dev Valles and colleagues, with an educational arturo from [employer]. GERA-7 Assessment Billing GERA-7 Assessment Tool: GERA-7 Assessment 77150 Physical exam (Primary Care) Vital Signs: Last Vital Signs Temp 97.3 F 08/16/25 13:22 Pulse 65 08/16/25 13:22 Resp 13 08/16/25 13:22 BP 132/72 08/16/25 13:22 Pulse Ox 98 08/16/25 13:22 Oxygen Delivery Method Room Air 08/16/25 13:22 BMI result Body Mass Index 43.2 Tobacco/Smoking Status: Tobacco use Status Tobacco use date assessed 08/16/25 08/16/25 13:19 Patient Tobacco Use Status Never used Tobacco 08/16/25 13:28 e-Cigarette/Vaping Use Never Used 08/16/25 13:28 PHQ-9: PHQ-9 Score PHQ-9: Total score 0 08/16/25 13:40 Depression Screening Interpretation: Negative Thrive Assessment: Date of Thrive Assessment Date Thrive assessed 08/16/25 08/16/25 13:19 Currently or been in a relationship where the following occur: No concerns reported Coding Level of Care Code New Pt Level 4 (45757) Complex EM visit Add On G2211 Diagnoses Encounter to establish care Z76.89 Obesity, morbid, BMI 40.0-49.9 E66.01 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; E06.3 Hypothyroidism type: due to Lemuel's thyroiditis Hx of deep vein thrombosis during Z86.718; Z87.59 History of Papanicolaou smear of cervix Z92.89 Additional Codes GERA-7 Assessment Billing - GERA-7 Assessment Tool: GERA-7 Assessment 75996 ([id number]) PHQ-9 - 71880 - PHQ-9 Billing: Yes ([id number]) Assessment & Plan Assessment & Plan (1) Encounter to establish care: Code(s): Z76.89 - Persons encountering health services in other specified circumstances (2) Obesity, morbid, BMI 40.0-49.9: Code(s): E66.01 - Morbid (severe) obesity due to excess calories Category: Medical (3) Hypothyroidism: Code(s): E03.9 - Hypothyroidism, unspecified Category: Medical Qualifiers: Hypothyroidism type: due to Lemuel's thyroiditis Qualified Code(s): E03.8 - Other specified hypothyroidism; E06.3 - Autoimmune thyroiditis (4) Hx of deep vein thrombosis during : Comment: 11/2007 was on coumadin and lovenox Code(s): Z86.718 - Personal history of other venous thrombosis and embolism; Z87.59 - Personal history of other complications of , childbirth and the puerpe rium Category: Medical (5) History of Papanicolaou smear of cervix: Onset Date: ~12/15/24 Code(s): Z92.89 - Personal history of other medical treatment Category: Medical Plan . Orders: Orders Complete Blood Count no Diff Today E03.9 - Hypothyroidism, unspecified, E66.01 - Morbid (severe) obesity due to excess calories, Z86.718 - Personal history of other venous thrombosis and embolism, Z87.59 - Personal history of other complications of , childbirth and the puerperium Comprehensive Met. Panel Today E03.9 - Hypothyroidism, unspecified, E66.01 - Morbid (severe) obesity due to excess calories, Z86.718 - Personal history of other venous thrombosis and embolism, Z87.59 - Personal history of other complications of , childbirth and the puerperium TSH reflex Free T4 Today E03.9 - Hypothyroidism, unspecified, E66.01 - Morbid (severe) obesity due to excess calories, Z86.718 - Personal history of other venous thrombosis and embolism, Z87.59 - Personal history of other complications of , childbirth and the puerperium Lipid Panel Today E03.9 - Hypothyroidism, unspecified, E66.01 - Morbid (severe) obesity due to excess calories, Z86.718 - Personal history of other venous thrombosis and embolism, Z87.59 - Personal history of other complications of , childbirth and the puerperium Hemoglobin A1c Today E03.9 - Hypothyroidism, unspecified, E66.01 - Morbid (severe) obesity due to excess calories, Z86.718 - Personal history of other venous thrombosis and embolism, Z87.59 - Personal history of other complications of , childbirth and the puerperium Microalbumin, Random (w Creat) Today E03.9 - Hypothyroidism, unspecified, E66.01 - Morbid (severe) obesity due to excess calories, Z86.718 - Personal hi story of other venous thrombosis and embolism, Z87.59 - Personal history of other complications of , childbirth and the puerperium Vitamin B12 and Folate Today E03.9 - Hypothyroidism, unspecified, E66.01 - Morbid (severe) obesity due to excess calories, Z86.718 - Personal history of other venous thrombosis and embolism, Z87.59 - Personal history of other complic ations of , childbirth and the puerperium Vitamin D 25-OH Total Today E03.9 - Hypothyroidism, unspecified, E66.01 - Morbid (severe) obesity due to excess calories, Z86.718 - Personal history of other venous thrombosis and embolism, Z87.59 - Personal history of other complications of , childbirth and the puerperium Medications: New levothyroxine 200 mcg PO DAILY@0600 90 tabs 0RF Changed From sertraline 75 mg PO DAILY To sertraline 75 mg (1.5 x 50 mg) PO DAILY 135 tabs 2RF 90 days Patient Instructions: Walk-In Care (Urgent Care): We Make it Easy Walk-in for urgent medical issues such as: ? Seasonal Allergies ? Insect Bites ? Cough ? Diarrhea ? Acute Asthma Attacks ? Back, Knee or Joint Pain ? Ear Infection ? Fever without a Rash ? Headaches ? Nausea ? [place] Eye, Rash or Skin Irritation ? Sore Throat ? Sports Physicals ? Vomiting Most insurances are accepted. Patients do not need to be part of the [facility] to seek care at the walk-in clinic. Locations [address] [place] [address] Open Thursday through Thursday 8am-5pm *Hours may vary due to staffing availability. To confirm Walk-In Care hours please call. [facility] , [place] [address] ? [phone] [facility] Walk-In Care in [place] provides services to ages 18 and over. Open Thursday-Thursday: 7 a.m. to 5 p.m. and Thursday: 9 a.m. to 3 p.m.* *Hours may vary due to staffing availability. To confirm Walk-In Care hours in [place], please call [phone]. [address] [place] [address] ? [phone] [facility] Walk-In Care in [place] provides services to ages 12 and over. Open Thursday-Thursday: 8 a.m. to 5 p.m. Hours may vary due to staffing availability. To confirm Walk-In Care hours in [place], please call [phone]. LABORATORY SERVICES: [facility] Lab ? Primary Location [address] [place] [address] Thursday through Thursday 6:00 AM ? 5:00 PM Thursday 7:00 AM ? 11:00 AM* [phone] The [facility] Lab is centrally located near the front entrance of the Medical Center for easy outpatient access. Convenient parking is provided for outpatients. *Hours may vary due to staffing availability. To confirm Laboratory hours for any location, please call [phone]. Offsite Location For your convenience, we offer offsite laboratory draw stations at the following locations: [address] [place] [address] ? [facility] [address], [address], [address], [place] Thursday through Thursday 7:30 AM ? 1:00 PM* [phone] *Hours may vary due to staffing availability. To confirm Laboratory hours for any location, please call [phone]. [place] ? [facility] [address] [facility] Thursday through Thursday 6:00 AM ? 3:30 PM* Thursday 6:30 AM ? 3 PM* [phone] *Hours may vary due to staffing availability. To confirm Laboratory hours for any location, please call [phone] [place] [address] Thursday through Thursday 7:30 AM ? 4:00 PM* [phone] *Hours may vary due to staffing availability. To confirm Laboratory hours for any location, please call [phone] [place] [address] Thursday through 9:00 AM ? 4:00 PM* *Hours may vary due to staffing availability. To confirm Laboratory hours for any location, please call [phone]. Appointments are not necessary. Walk-ins are welcome. Like all the departments throughout the [facility], our Lab undergoes frequent reviews to ensure the quality and accuracy of test results, and our staff takes special pride in its status as a nationally accredited facility. Patient Portal: [facility] ONE PATIENT. ONE RECORD. BETTER CARE. [facility] has a fully integrated, cutting- edge mobile electronic health information system that has revolutionized the way we care for our patients and manage our organization. This system improves communication and coordination enabling us to provide safe, higher-quality care, and an overall positive experience for staff and patients. Our first priority, as always, is to deliver the highest quality care possible. The system is running in the background supporting that priority. This portal is for all [facility] services and practices. If you are experiencing any technical difficulties with enrolling or logging into the Patient Portal please complete the [facility] Patient Portal Technical Support Form. [facility] now offers a new secure on-line interactive tool for patients to review their health information ? ?Patient Portal. This interactive web portal will enable patients and their families to take an active role in their care by providing easy, secure access to their health information via the internet. The Patient Portal provides patients with instant access to their health information, including laboratory results, medications, allergies, demographic information, visit history, and more. In addition to managing their own care, parents and health care proxies with authorized consent will appreciate the ability to access the records of those individuals for whom they provide care. Please note: if you wish to gain access (Proxy) to another patient?s portal, you will be required to come to the Medical Records Department in person at [facility]. Both the patient giving proxy access and the proxy will need to provide photo identification and complete the appropriate authorization. The Patient Portal also allows track their appointments online. The [facility] Patient Portal also saves patients time by allowing them to submit updates to their demographic and contact information prior to their visits. Portal email notifications will also alert patients to any new activity on their portal, such as test results and new appointments. In order to initially enroll in the [facility] Patient Portal, you will need to enter some required information including the following: * your [facility] Medical Record number * your personal home email address * name * date of Please note: In order to enroll in the [facility] Patient Portal, we need to have your email address on file in your electronic medical record. ?The email address needs to be specific for one person (yourself) in order for your Portal enrollment to be successful. ?You can update your email address in person with our Registration staff when you are registering for a hospital visit. ?Otherwise, you will need to come to the Health Information Management (Medical Records) Department at [facility]. ?We are open from Thursday ? Thursday from 7:30 a.m. ? 4:30 p.m. ?You will be required to present a photo id. Once you have successfully enrolled in the Patient Portal, you will receive a one-time user id and password for the Portal, sent to your email address. ?This will allow you to log into the Patient Portal within 99 hrs and reset your own logon id and password, and define personal security questions. ?Once your permanent login and password have been set, you can log into the [facility] Patient Portal at any time via the blue button above or from the Portal Logon button on any page of the [facility] website. [facility] and [facility] encourage all of our patients to enroll in Patient Portal as it presents a valuable opportunity for patients and their families to actively participate in their care and stay healthy Welcome to [facility] [place]. ?We look forward to working with you.
[2025-08-16 13:22] VITALS: BP 132/72; PULSE 65; RESP 13; TEMP 36.3; O2SAT 98; BMI 43.2
--- OUTSIDE RECORDS SUMMARY | 2025-08-16 16:37 | XMS_ITS | Clinical Summary ---
Author Organization [facility] [place] Address [address] [place] [address] Care Team Providers Care Calender Let Off Helper Name Role Phone Alexa Thompson MD Primary Care Prov ider Allergies No known active allergies Medications levothyroxine (SYNTHROID, LEVOTHROID) 200 mcg tabletIndication s:Hypothyroidism , unspecified TAKE 1 TABLET BY MOUTH DAILY BEFORE BREAKFAST. 90 tablet 05/30/2025 Active sertraline (ZOLOFT) 50 mg tablet TAKE 1 AND 1/2 TABLETS BY MOUTH 1 TIME EACH DAY. 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 ([facility] V24) 02/12/2024 Morbid obesity ([facility] V24, [facility] V28) 2014 Hypothyroidism 05/02/2014 PMDD (premenstrual dysphoric disorder) 4 Immunizations Immunization Administration Dates Next Due Pfizer (ages 12 & older) Bivalent, COVID-19 09/18 Pfizer SARS-CoV-2 COVID-19, mRNA, LNP-S, preservative free 10/02/2021 Tdap Tetanus diptheria acell ular pertussis (Boostrix; Adacel) 7yo and older 09/08/2022,07/20/2008 Surgical History Surgery Date Site/Laterality Comments SECTION 2007 PROCEDURE: HISTORICAL ; COMMENT: x1 BREAST BIOPSY PROCEDURE: BX BREAST; PERC NEEDLE CORE W/IMAG GUID; COMMENT: neg-lt breast Medical History Medical History Date Comments DVT (deep vein thrombosis) in DX:DVT (deep vein thrombosis) in Hypothyroidism 05/02/2014 DX:Hypothyroidis m PMDD (premenstrual dysphoric disorder) 05/02/2014 DX:PMDD (premenstrual dysphoric disorder) Family History Medical History Relation Name Comments Breast cancer Aunt pat paternal Hyperthyroidism Brother 1 No Known Problems Brother 2 No Known Problems Father Diabetes Maternal Grandmother Hypertension Mother Hyperthyroidism Mother Colon cancer Neg Hx Ovarian cancer Neg Hx Relation Name Status Comments Aunt pat Brother 1 Alive Brother 2 Alive Father Alive Maternal Grandfather Maternal Grandmother Mother Alive Paternal Grandfather Paternal Grandmother Social History Tobacco Use Types Packs/Day Years Used Date Smoking Tobacco: Never Smokeless Tobacco: Never Tobacco Cessation:Counseling Given: No Alcohol Use Standard Drinks/Week Comments Yes 0 (1 standard drink = 0.6 oz pur e alcohol) Comments No Sex and Gender Information Value Date Recorded Sex Assigned at Female 01/20/2022 11:40 AM EDT Legal Sex Female 12:34 PM EDT Gender Identity Female 01/20/2022 11:40 AM EDT Sexual Orientation Straight 01/20/2022 11 :40 AM EDT Obstetrics History Para Term AB IAB SAB Ectopic Multiple Livin g Live Births 1 1 1 Date Outcome GA Total Labor Labor/2nd/3rd Weight Sex Type Anes PTL Marita A1 A5 Name Clin Term Last Filed Vital Signs Vital Sign Reading Time Taken Comments Blood Pressure 110/68 12/30/2024 3:27 PM EDT Pulse 75 12/30/2024 3:27 PM EDT Temperature 36.5 C (97.7 F) 12/30/2024 3:27 PM EDT Respiratory Rate - - Oxygen Saturation - - Inhaled Oxygen Concentration - - Weight 133 kg (293 lb) 12/30/2024 3:27 PM EDT Height 170.2 cm (5' 7 ) 06/30/2024 10:06 AM EDT Body Mass Index 45.89 06/30/2024 10:06 AM EDT Plan of Treatment Upcoming Encounters Date Type Department Care Team (Late st Contact Info) Description 09/11/2025 9:30 AM EST Office Visit Adult Medicine [address] [phone] Alexa Thompson MD [address] [place] [address] Health Maintenance Due Date Last Done Comments Colorectal Cancer Screening: Colonoscopy 1971 Hepatitis B Vaccines (1 of 3 - 19+ 3-dose series) 1990 Pneumococcal Vaccine: 50+ Years (1 of 1 - PCV) 2021 RSV Immunization Adult Patients (1 - Risk 50-74 years 1-dose series) 2021 Zoster Vaccines (1 of 2) 2021 Depression Screening 10/19/2024 09/08/2024 Breast Cancer Screening 08/09/2026 08/09/20 24, 08/09/2024, 08/03/2023, Additional history exists Cholesterol Screening (Lipid Panel) 09/08/2029 09/08/2024, 09/08/2022 Cervical Cancer Screening: HPV 11/25/2029 11/25/2024, 11/03/2017 DTaP,Tdap,and Td Vaccines (3 - Td or Tdap) 09/08/2032 09/08/2022, 07/20/2008 Hepatitis C Screening Completed 09/08/2022 COVID-19 Vaccine Discontinued 09/30/2022, , 03/13/2021, Additional history exists HIB Vaccines Aged Out No longer eligi ble based on patient's age to complete this topic HIV Screening Discontinued HPV Vaccines Aged Out No longer eligi ble based on patient's age to complete this topic Hepatitis A Vaccines Aged Out No long er eligible based on patient's age to complete this topic IPV Vaccines Aged Out No longer eligi ble based on patient's age to complete this topic Influenza Vaccine Discontinued MMR Vaccines Aged Out No longer eligi ble based on patient's age to complete this topic Meningococcal ACWY Vaccine Aged Out N o longer eligible based on patient's age to complete this topic Meningococcal B Vaccine Aged Out No l onger eligible based on patient's age to complete this topic RSV Immunization Patients Under 20 months Aged Out No longer eligible based on patient's age to complete this topic Social Influencers of Health Screening Discontinued Varicella Vaccines Aged Out No longer eligible based on patient's age to complete this topic Procedures Procedure Name Priority Date/Time Associated Diagnosis Comments HPV WITH REFLEX GENOTYPE Routine 11/25/2024 3:25 PM EST Encounter for annual physical examination excluding gynecological examination in a patient older than 17 years LIPID PANEL WITH REFLEX TO DIRECT LDL Routine 09/08/2024 9:44 AM EST Routine general medical examination at a health care facility SCREENING MAMMOGRAPHY BI 2-VIEW BREAST INC CAD Routine 08/09/2024 8:13 AM EDT Encounter for screening mammogram for malignant neoplasm of breast HM HEPATITIS C SCREENING Routine 09/08/2022 from Last 3 Months or Most Recently Relevant to Health Maintenance Results * HPV with reflex genotype (11/25/2024 3:25 PM EST) HPV Negative Negative LAB MICROBIOLOGY METHOD 11/28/2024 3:11 PM EST [facility] Brushing Cervix uteri structure / Unknown 11/25/2024 3:25 PM EST 11/28/2024 6:01 AM EST us Mukesh GARRIDO LAB MOLECULAR DIAGNOSTICS ORD ERABLES Final Result [facility] [address] [place] [address], [place] [phone] * Lipid panel with reflex to direct LDL (09/08/2024 9:44 AM EST) Cholesterol 152 0 - 200 mg/dL LAB CHEMISTRY METHOD 09/08/2024 12:48 PM EST [facility] Triglycerides 59 0 - 150 mg/dL LAB CHEMISTRY METHOD 09/08/2024 12:48 PM EST [facility] HDL 71 >=40 mg/dL LAB CHEMISTRY METHOD 09/08/2024 12:48 PM EST [facility] LDL Calculated 69 0 - 100 mg/dL LAB CHEMISTRY METHOD 09/08/2024 12:48 PM EST [facility] VLDL Cholesterol Rubio 11.8 mg/dL LAB CHEMISTRY METHOD 09/08/2024 12:48 PM EST [facility] Non HDL Chol. (LDL+VLDL) 81 <145 mg/dL LAB CHEMISTRY METHOD 09/08/2024 12:48 PM EST [facility] Chol/HDL Ratio 2.1 0.0 - 4.4 LAB CHEMISTRY METHOD 09/08/2024 12:48 PM EST [facility] Blood Venous blood specimen / Unknown Venipuncture / Unknown 09/08/2024 9:44 AM EST 09/08/2024 9:44 AM EST us Alexa Thompson MD LAB BLOOD ORDERABL ES Final Result [facility] [address] [place] [address], * SCREENING MAMMOGRAPHY BI 2-VIEW BREAST INC CAD (08/09/2024 8:13 AM EDT) Anatomical Region Laterality Modality Radiographic Natividad ging 08/03/2023 8:07 AM EDT Narrative 08/09/2024 3:08 PM EDT This is a summary report. The complete report is available in the patient's medical record. If you cannot access the medical record, please contact the sending organization for a detailed fax or copy. Study: SCREENING MAMMOGRAPHY BI 2-VIEW BREAST INC CAD Technique: Bilateral full-field digital screening mammography is obtained and read in conjunction with computer aided detection. Tomosynthesis as well as 2D C-View imaging were obtained. Comparison: Comparison made to multiple priors, most recent August 03, 2023, and most remote October 15, 2016. Breast composition: The breasts are heterogeneously dense, which may obscure small masses. Right breast: No suspicious masses, suspicious calcifications or other abnormalities are seen. Left breast: History of previous biopsy. No suspicious masses, suspicious calcifications or other abnormalities are seen. IMPRESSION: Impression: Bilateral breasts: Benign, no specific mammographic evidence of malignancy. Normal interval follow-up is recommended in 12 months. BI-RADS: Category 2: Benign [address] [address] [phone] Procedure Note Calvin Parsons MD - 08/16/2024 This is a summary report. The complete report is available in thepatient's medical record. If you cannot access the medical record, pleasecontact the sending organization for a detailed fax or copy. Study: SCREENING MAMMOGRAPHY BI 2-VIEW BREAST INC CAD Technique: Bilateral full-field digital screening mammography is obtainedand read in conjunction with computer aided detection. Tomosynthesis aswell as 2D C-View imaging were obtained. Comparison: Comparison made to multiple priors, most recent July, and most remote October 15, 2016. Breast composition: The breasts are heterogeneously dense, which mayobscure small masses. Right breast: No suspicious masses, suspicious calcifications or otherabnormalities are seen. Left breast: History of previous biopsy. No suspicious masses, suspiciouscalcifications or other abnormalities are seen. IMPRESSION: Impression: Bilateral breasts: Benign, no specific mammographic evidence ofmalignancy. Normal interval follow-up is recommended in 12 months. BI-RADS: Category 2: Benign [address] [id number] [phone] Alexa Thompson MD IMG XR PROCEDURES Final Result * Hepatitis C Screening (09/08/2022) Hepatitis C Screening abstracted Historical Provider HEALTH MAINTENANCE Final Result from Last 3 Months or Most Recently Relevant to Health Maintenance Insurance [facility] Care Teams Calender Let Off Helper Relationship Specialty Start Date End Date Alexa Thompson MD PCP - General Internal Medicine 04/25/14
--- OUTSIDE RECORDS SUMMARY | 2025-08-16 16:37 | XMS_ITS | Clinical Summary ---
Author Organization [facility] Address [address] [place] [address] Care Team Providers Care Screenplay Writer Name Role Phone Alexa Thompson MD Primary Care Prov ider Allergies No known active allergies Medications Medication Sig Dispensed Refills Start Date End Date Status levothyroxine (SYNTHROID) tablet 200 mcg levothyroxine 200 mcg tablet 0 05/02/2019 Active sertraline (ZOLOFT) 50 MG tablet sertraline 50 mg tablet 0 05/02/2019 Active celecoxib (CeleBREX) 200 MG capsule celecoxib 200 mg capsule TAKE 1 CAPSULE BY MOUTH DAILY NEEDED FOR PAIN. 0 07/16/2021 Active Social History Tobacco Use Types Packs/Day Years Used Date Smoking Tobacco: Never Assessed Sex and Gender Information Value Date Recorded Sex Assigned at Not on file Gender Identity Not on file Sexual Orientation Not on file Job Start Date Occupation Industry Not on file Not on file Not on file Last Filed Vital Signs Vital Sign Reading Time Taken Comments Blood Pressure - - Pulse - - Temperature - - Respiratory Rate - - Oxygen Saturation - - Inhaled Oxygen Concentration - - Weight 152 kg (335 lb) 10/14/2022 3:46 PM EST Height 170.2 cm (5' 7 ) 10/14/2022 3:46 PM EST Body Mass Index 52.47 10/14/2022 3:46 PM EST Plan of Treatment Health Maintenance Due Date Last Done Comments Hepatitis B Vaccines (1 of 3 - 3-dose series) 1971 Hepatitis C Screening 1971 Depression Screening 1983 BMI Counseling 1989 Preventative Health Evaluation 1989 Cervical Cancer Screening (P ap Smear) 1992 Colon Cancer Screening (Colonoscopy) 2016 Breast Cancer Screening (Mammogram) 2021 Shingrix-Zoster Vaccine (1 of 2) 2021 COVID-19 Vaccine (2 - 2024-2 6 season) 2025 10/02/2021 Influenza Vaccine (#1) 2025 DTap / Tdap / Td (2 - Td or Tdap) 09/08/2032 022 Pneumococcal Vaccine Aged Out No long er eligible based on patient's age to complete this topic RSV Ped < 20 months Aged Out No longe r eligible based on patient's age to complete this topic Care Teams Screenplay Writer Relationship Specialty Start Date End Date Alexa Thompson MD PCP - General Internal Medicine 08/05/22
--- OUTSIDE RECORDS SUMMARY | 2025-08-16 16:37 | XMS_ITS | Clinical Summary ---
Author Organization [facility] Address [address] [facility] [address] [place] [id number] Phone Care Team Providers Care Rest Room Maid Name Role Phone Alexa Thompson MD Primary Care Pr ovider Allergies No known active allergies Medications levothyroxine (SYNTHROID, LEVOTHROID) 200 MCG tablet One daily and two on thursday 9 Active sertraline (ZOLOFT) 50 MG tablet Take 1 tablet (50 mg total) by mouth daily. 90 tablet 3 9 Active celecoxib (CELEBREX) 200 MG capsuleIndications: Primary osteoarthritis of both knees Take 1 capsule (200 mg total) by mouth daily. Take with food. 30 capsule 1 Active Active Problems Problem Noted Date Diagnosed Date Acquired hypothyroidism 05/02/2019 PMDD (premenstrual dysphoric disorder) 9 Cough 05/02/2019 Social History Tobacco Use Types Packs/Day Years Used Date Smoking Tobacco: Never Smokeless Tobacco: Never Alcohol Use Standard Drinks/Week Comments Not Currently 0 (1 standard drink = 0.6 oz pur e alcohol) Education Answer Date Recorded Are you interested in more education? Not on ángela e 02/13/2023 Are you concerned about learning? Not on file 02/13/2023 No 02/13/2023 No 02/13/2023 Digital Access Answer Date Recorded No 03/14/2023 No 03/14/2023 No 03/14/2023 Reliable internet access at home? Not on file 03/14/2023 Device with a working camera? Not on file Comments Unknown Sex and Gender Information Value Date Recorded Sex Assigned at Female 01/13/2022 1:38 PM EDT Legal Sex Female 11:59 AM EDT Gender Identity Female 01/13/2022 1:38 PM EDT Sexual Orientation Straight 01/13/2022 1: 38 PM EDT Last Filed Vital Signs Vital Sign Reading Time Taken Comments Blood Pressure 132/80 05/02/2019 11:30 AM EDT Pulse 68 05/02/2019 11:30 AM EDT regu lar Temperature - - Respiratory Rate 18 05/02/2019 11:30 AM EDT Oxygen Saturation 99% 05/02/2019 11:30 AM EDT Inhaled Oxygen Concentration - - Weight 151 kg (333 lb) 07/16/2021 10:41 AM EDT Height 173.4 cm (5' 8.25 ) 07/16/2021 10:41 AM E DT Body Mass Index 50.26 07/16/2021 10:41 AM EDT Plan of Treatment Health Maintenance Due Date Last Done Comments LIPID PANEL 1971 TSH LEVEL 1971 HEPATITIS C SCREENING 1989 HIV ONE-TIME SCREENING (18-6 5 YEARS) 1989 PAP SMEAR 1992 MAMMOGRAM 2011 COLOGUARD 2016 COLONOSCOPY 2016 COLORECTAL CANCER SCREENING 2016 FIT TEST 2016 FOBT 2016 SIGMOIDOSCOPY 2016 VIRTUAL COLONOSCOPY 2016 Adult Td,Tdap Booster 07/20/2018 07/20/2008 DEPRESSION SCREENING 05/02/2020 05/02/2019 PNEUMOCOCCAL VACCINES (50+ years) (1 of 1 - PCV) 2021 ZOSTER VACCINES (1 of 2) 2021 INFLUENZA VACCINE (#1) 2025 COVID-19 VACCINE (3 - 2024-2 6 season) 2025 03/13/2021, 02/20/2021 RSV VACCINE (1 - 1-dose 75+ series) 2046 SMOKING STATUS SCREENING (On ce After 26 Yrs) Completed 07/16/2021 HEPATITIS A VACCINES Aged Out No long er eligible based on patient's age to complete this topic HIB VACCINES Aged Out No longer eligi ble based on patient's age to complete this topic MENINGOCOCCAL VACCINES (ACWY) Aged Out No longer eligible based on patient's age to complete this topic MENINGOCOCCAL VACCINES (B) Aged Out N o longer eligible based on patient's age to complete this topic Medical Devices Not on file Insurance [facility] POS EPO [facility] POS EPO [facility] POS EPO [facility] POS EPO [place] [facility] [place] [facility] [place] [facility] EPO [facility] POS EPO [place] [facility] POS EPO Care Teams Rest Room Maid Relationship Specialty Start Date End Date Alexa Thompson MD [address] [place] [id number] PCP - General Internal Medicine 07/12/21 Additional Source Comments The information contained in this document represents components of the legal health record. It is not the complete legal health record.[facility]
--- OUTSIDE RECORDS SUMMARY | 2025-08-16 16:37 | XMS_ITS | Data Portability ---
Author Organization [place] [facility] [place] Address [address] [place] [address] Care Team Providers Care Supervisor Lathing Name Role Phone TAWANDA WEISS Primary Care Provider Assessment Encounter Date Assessment Date Assessment LastModified by Organization Details LastModified Time 04/24/2023 04/24/2023 HPI : Patient is here today with complaints of bilateral knee pain. T he patient is experiencing bilateral knee pain, which is moderate in intensity, and has recently worsened. The right knee is the worse knee. The pain limits some activities of daily living. Walking tolerance is reduced. Pain and restriction of function are significant at this time. She has undergone treatments for years. She has undergone corticosteroid injections and gel injections which are no longer helpful. Review of systems is negative for other rapidly progressive neurological disorder, chest pain, shortness of breath, fevers, chills, or any signs of active or persistent local or systemic infection. Physical Exam : Patient is well nourished, well-developed, in no acute distress, with appropriate mood and affect. The patient is oriented to time, place, and person. Bilateral knee motion is reduced and does cause significant pain. The right knee moves from 5-115 degrees and the left knee moves from 5-115 degrees. The knees are stable within those [id number]. The alignment of the right knee is neutral. The alignment of the left knee is neutral. Knee muscle strength is normal bilaterally with the skin intact. Pedal pulses are palpable. Hip examination, including flexion and internal rotation, was negative in that groin pain was not produced. Assessment/Plan : The patient has bilateral knee arthritis. An extensive discussion was conducted on the natural history of the disease and the variety of surgical and non-surgical options available to the patient including, but not limited to non-steroidal anti-inflammatory medications, steroid injections, viscosupplementat ion, physical therapy, maintenance of ideal body weight, and reduction of activity. She is can work on weight loss for now. She is continuing conservative management. We did discuss surgical intervention if she meets her weight loss goals. She will follow-up with me in 3 months for weight check and further discussion. Not available 04/24/2023 10:30:03 Plan of Treatment Reminders Order Date Submit Date Provider Last Modified By Organization Details Last Modified Time Details Appointments None recorded. Lab None recorded. Referral None recorded. Procedures None recorded. Surgeries None recorded. Imaging XR, knee, 1 or 2 view - Left Knee Pain 2022 023 [email or web address] [facility], [address], [place], [address], 3 12:11:26 XR, knee, 1 or 2 view - Right Knee Pain 2022 023 [email or web address] [facility], [address], [place], [address], 3 12:11:26 XR, knee, weightbeari ng - Bilateral Knee Pain 2022 023 [email or web address] [facility], [address], [place], [address], 3 12:11:26 Medication Orders None recorded. Patient TargetsNo targets recorded. Patient Instructions Encounter Date Encounter Id Patient Instructions Last Modified By Organization Details Last Modified Time 04/24/2023 [id number] AP, lateral, Pena, and patellar radiographs views of the left knee taken today demonstrate left knee degenerative joint disease with joint space narrowing, osteophyte formation, and subchondral sclerosis AP, lateral, Pena, and patellar view radiographs of the right knee taken today demonstrate right knee degenerative joint disease with joint space narrowing, osteophyte formation, and subchondral sclerosis Not available 04/24/2023 10:28:15 Reason for Referral None Reported. Problems Name Problem SNOMED Code Status Onset Date Resolution Date Notes Provider Name and Address Organization Details Recorded Time Osteoarthri tis of right knee joint 0927489183489 00 Active 2022 Joshua Arreola MD [address], [place], [place], [phone], [facility] 3 10:30:10 Osteoarthri tis of left knee joint 5843230754143 09 Active 2022 Joshua Arreola MD [address], [place], [place], [address], [place] [facility] 3 10:30:17 Problem Notes None recorded. Procedures Surgical History Date Name Laterality Status Provider Name and Address Organization Details Recorded Time section completed Manpreet Srivastava [facility] 04/24/2023 10:02:56 Imaging Results None recorded. Procedure Notes None recorded. Medical Equipment None Reported. Allergies No known drug allergies Medications Name Sig Start Date Stop Date Status Note LastModified by Organization Details LastModified Time celecoxib 200 mg capsule TAKE 1 CAPSULE BY MOUTH DAILY NEEDED FOR PAIN. active Not Available Not Available No t Available benzonatate 200 mg capsule TAKE 1 CAPSULE BY MOUTH THREE TIMES A DAY NEEDED FOR 10 DAYS active Not Available Not Available No t Available codeine 10 mg-guaifene sin 100 mg/5 mL oral liquid TAKE 10 ML EVERY 4 HOURS BY ORAL ROUTE NEEDED FOR 7 DAYS. active Not Available Not Available No t Available levothyroxi ne 200 mcg tablet TAKE 1 TABLET BY MOUTH DAILY ON THURSDAY - THURSDAY & TAKE 2 TABLETS ON SUNDAYS active Not Available Not Available No t Available sertraline 50 mg tablet TAKE 1.5 TABLETS BY MOUTH DAILY FOR 180 DAYS. active Not Available Not Available No t Available sodium hyaluronate 10 mg/mL(mw 2.4-3.6 million)int ra-articula r syringe 10/28 completed Not Available Not Available Not Available Vitals Date Recorded Body height Body mass index (BMI) Body weight Provider Name and Address Organization Details Last Updated DateTime 04/24/2023 170.18 cm 47.6 kg/m2 965746.08 g Manpreet Srivastava [facility] 04/24/2023 10:00:41 Social History None recorded. Functional Status Question Answer Note LastModified by Organizat ion Details LastModified Time How many times per week do you consume alcohol? 5-7 times per week [email or web address] Information not available 04/24/2023 Do you use any illicit or recreational drugs? No [email or web address] Information not available 04/24/2023 Do you or have you ever used any other forms of tobacco or nicotine? No [email or web address] Information not available 04/24/2023 What is your level of alcohol consumption? Moderate [email or web address] Information not available 04/24/2023 Mental Status None recorded. Family History Relationship Description Onset Age of this Age Resolved Age Notes LastModified by Organization Details LastModified Time Father Arthritis [email or web address] Not avai lable 04/24/2023 10:01:37 Mother Arthritis [email or web address] Not avai lable 04/24/2023 10:01:37 Mother Heart disease [email or web address] Not available 04/2023 10:02:30 Mother Hyperlipidem ia [email or web address] Not available 04/2023 10:02:39 Medical History Condition Response Hypothyroidism Y Reflux/GERD Y Gynecological HistoryNo gynecological history recorded. Obstetrics History GPAL:G 0 P 0 0 0 0 Past Encounters Encounter ID Performer Location Encounter Start Date Encounter Closed Date Diagnosis/Indication Diagnosis SNOMED-CT Code Diagnosis ICD10 Code Diagnosis IMO Codes Diagnosis Note [id number] Joshua Arreola MD [address] [address] 04/24/2023 09:40:30 04/24/2023 10:33:39 Pain of bilateral knee joints 4797058580 82904 M25.561 M25.562 Osteoarthr itis of right knee joint 9678508825 38943 M17.11 Osteoarthr itis of left knee joint 7844191817 74443 M17.12 Health Concerns Section Related Observation LastModified by Organization Detai ls LastModified Time None Recorded Concern Status LastModified by Organization Details LastModified Time None Recorded Advance Directives Directive None Recorded Payers Insurance Date Sequence Insurance Name Policy Number Policy Vasquez Covered Member ID Vasquez Member ID Guarantor Name 07/30/2023 1 [facility] [place] Estefany Weiss [id number] Estefany Zborowski OBGyn Episode No OBEpisode recorded.
--- OUTSIDE RECORDS SUMMARY | 2025-08-16 16:37 | XMS_ITS | Encounter Summary ---
Author Organization [facility] Address [address] [facility] [address] [place] [phone] Phone Care Team Providers Care Wireless Manager Name Role Phone Alexa Thompson MD Primary Care Pr ovider Encounter Details Date Type Department Care Team (Late st Contact Info) Description 07/16/2021 Ancillary Orders [facility],Outside Imaging [address] [place] [address] System, Provider Not In, [facility] [address] [address] Social History Tobacco Use Types Packs/Day Years Used Date Smoking Tobacco: Never Smokeless Tobacco: Never Alcohol Use Standard Drinks/Week Comments Not Currently 0 (1 standard drink = 0.6 oz pur e alcohol) Comments Unknown Sex and Gender Information Value Date Recorded Sex Assigned at Female 01/13/2022 1:38 PM EDT Legal Sex Female 11:59 AM EDT Gender Identity Female 01/13/2022 1:38 PM EDT Sexual Orientation Straight 01/13/2022 1: 38 PM EDT documented as of this encounter Plan of Treatment Not on file documented as of this encounter Results * XR Lower Extremity Outside (No Interpretation) (07/11/2021 12:00 AM EDT) Narrative SYSTEMGENERATED, DOCUMENTATION - 07/16/2021 11:28 AM EDT This study is for PACS storage only and not for interpretation. us Provider Not In System [facility] OUTSIDE IMAGING W /OUT INTERPRETATION Final Result documented in this encounter Visit Diagnoses Not on filedocumented in this encounter Additional Health Concerns Assessment Noted Time PHQ-2 Depression Total Score: 2 05/02/20 19 10:50 AM EDT documented as of this encounter Care Teams Wireless Manager Relationship Specialty Start Date End Date Alexa Thompson MD [address] [place] [phone] PCP - General Internal Medicine 07/12/21 documented as of this encounter Additional Source Comments The information contained in this document represents components of the legal health record. It is not the complete legal health record.[facility]
== END 2025-08-16 13:52 | disposition home or self-care (01) ==
PROVIDERS: PCP Nurse Practitioner Family; Visit Provider Nurse Practitioner Family
DX: E03.8 Other specified hypothyroidism (principal); E06.3 Autoimmune thyroiditis; E66.01 Morbid (severe) obesity due to excess calories; Z68.41 Body mass index [BMI] 40.0-44.9, adult; Z86.718 Personal history of other venous thrombosis and embolism; Z87.59 Personal history of other complications of pregnancy, childbirth and the puerperium; Z92.89 Personal history of other medical treatment

== ENCOUNTER 2025-08-16 13:04 | Outpatient (REF) | payer OTHER, SELFPAY ==
--- OUTSIDE RECORDS SUMMARY | 2025-08-16 17:52 | XMS_ITS ---
Author Name [facility] Organization Unknown History of Medication Use Medication Directions Dispensed Refills Start Date End Date Stat us benzonatate 200 mg capsule TAKE 1 CAPSULE BY MOUTH THREE TIMES A DAY NEEDED FOR 10 DAYS active celecoxib 200 mg capsule TAKE 1 CAPSULE BY MOUTH DAILY NEEDED FOR PAIN. active codeine 10 mg-guaifenesin 100 mg/5 mL oral liquid TAKE 10 ML EVERY 4 HOURS BY ORAL ROUTE NEEDED FOR 7 DAYS. active levothyroxine 200 mcg tablet TAKE 1 TABLET BY MOUTH DAILY ON THURSDAY - THURSDAY & TAKE 2 TABLETS ON SUNDAYS active sertraline 50 mg tablet TAKE 1 TABLET BY MOUTH EVERY DAY active Problems Problem Status Onset Date Problem Type Date of Resoluti on Source Osteoarthritis of left knee joint active 2023-04-24 ProblemAct [facility] Osteoarthritis of right knee joint active 2023-04-24 ProblemAct [facility] Encounters Encounter Type Encounter Reason Primary Diagnosis Location Date Ambulatory [facility] 07/30/2023 Ambulatory [facility] 07/21/2023 Ambulatory [facility] 07/08/2023 Ambulatory [facility] 06/05/2023 Ambulatory [facility] 04/24/2023 Ambulatory [facility] 04/24/2023 Ambulatory [facility] 04/22/2023 Ambulatory [facility] 02/16/2023 Ambulatory [facility] 02/12/2023 Care Team Organization Name Specialty Phone Email Start Date End Da te [facility] DEEP WEISS Primary Care 09/18/2022 06/06/2024
[2025-08-16 18:23] LABS: Total Hemoglobin (HGBA1C) 3536.9614 umol/L
[2025-08-16 18:32] LABS: Hematocrit 41.1 % (37.0-47.0); Hemoglobin 13.4 g/dl (12.0-16.0); Mean Corpuscular HGB Conc 32.6 g/dl (31.0-35.0); Mean Corpuscular Hemoglobin 29.5 pg (27.0-33.0); Mean Corpuscular Volume 90.3 fL (80.0-98.0); NRBC Abs Auto 0.000 X10*3/uL (0.0-0.012); NRBC Pct Auto 0.0 /100WBC (0.0-0.2); Platelet Count 245 X10*3/uL (160-400); Red Blood Count 4.55 X10*6/uL (4.20-5.50); White Blood Count 6.8 X10*3/uL (4.8-10.8)
[2025-08-16 18:37] LABS: Alanine Aminotransferase 65 U/L (0-31); Albumin Level 4.7 g/dL (3.5-5.0); Alkaline Phosphatase 82 U/L (39-117); Anion Gap 13 (12-20); Aspartate Amino Transferase 44 U/L (5-31); Blood Urea Nitrogen 17 mg/dL (9-16); Calcium 9.4 mg/dL (8.4-10.2); Carbon Dioxide 29 mmol/L (22-29); Chloride 104 mmol/L (96-108); Cholesterol 182 mg/dL (<200); Estimated Glomerular Filt Rate > 60; HDL Cholesterol 68 mg/dL (>40); Potassium 4.0 mmol/L (3.3-5.1); Sodium 142 mmol/L (135-145); Total Protein 7.4 g/dL (6.5-8.0); Triglycerides 56 mg/dL (<150)
[2025-08-16 18:58] LABS: Folate 7.0 ng/mL (> or = 4.0); Vitamin B12 554 pg/mL (200-900)
== END 2025-08-16 13:05 | disposition home or self-care (01) ==
LOC: HO.WFDLDS 13:04
PROVIDERS: Visit Provider Nurse Practitioner Family
DX: E66.01 Morbid (severe) obesity due to excess calories (principal); E03.9 Hypothyroidism, unspecified; F32.A Depression, unspecified; E66.9 Obesity, unspecified; E03.8 Other specified hypothyroidism; E06.3 Autoimmune thyroiditis; Z13.1 Encounter for screening for diabetes mellitus; Z76.89 Persons encountering health services in other specified circumstances; Z92.89 Personal history of other medical treatment; Z86.718 Personal history of other venous thrombosis and embolism; Z87.59 Personal history of other complications of pregnancy, childbirth and the puerperium; Z68.41 Body mass index [BMI] 40.0-44.9, adult
CPT/HCPCS: 36415; 80053; 80061; 82306; 82570; 82607; 82746; 83036; 84443; 85027; 96127